=== PATIENT | male | born 1960 | race Two or more races ===

== ENCOUNTER → 2016-07-25 | Day surgery (SDC) | payer OTHER ==
[~2016-07-25] MED LIST: ACETAMINOPHEN 325 MG TAB PO PRN; CYMB60CA3 PO; D5W/0.2% SODIUM CHLORIDE 1,000 ML IV SCH; ERYTHROMYCIN OPHTH OINT As Ordered ONE; GABA-282 PO; LASI20TA PO; LIDOCAINE 2% W/EPIN INJ 20ML **PRES FREE As Ordered ONE; LIDOCAINE 4% INJ 5 ML AMP OU ONE; LIPI10TA PO; LISI40TAB PO; MIDAZOLAM INJ 2 MG/2 ML VIAL (J2250) As Ordered ONE; NABU750T PO; NORV2TAB PO; OFLOXACIN 0.3 % (OCUFLOX) OPTH SOL 5ML OS ONE; ONDANSETRON 4MG/2ML VIAL (J2405) IV PRN; POVIDONE-IODINE 5% OPHTH PREP SOL 30ML As Ordered ONE; RANI15TA PO; TIZA4CAP3 PO; TRIMETHOBENZAMIDE 300 MG CAP PO PRN; ULOR80TA PO; fentaNYL 100 MCG/2 ML INJECTION (J3010) As Ordered ONE
[2016-07-25 19:25] VITALS: BP 146/95
--- NOTE | 2016-07-26 18:50 | RO ---
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 The patient had exposure ulcers that were progressing. Multiple medical treatments were attempted with ointments and Prokera treatments. The patient was also instructed to wear a shield at night, but his ulcers continued to progress and a decision was made to tarsorrhaphy the eye temporarily shutting it to allow the corneal ulcers to heal. After this is accomplished then later a more definitively tightening procedure will be performed. PREPROCEDURE DIAGNOSIS: As above. Corneal ulcers secondary to floppy eyelid syndrome left upper lid and ectropion left lower lid. POSTPROCEDURE DIAGNOSIS: As above. Corneal ulcers secondary to floppy eyelid syndrome left upper lid and ectropion left lower lid. Status post temporary tarsorrhaphy, total. OPERATIVE PROCEDURE: Total temporary tarsorrhaphy left eye. SURGEON: Bc Alan Jr., DO, FACS GAS PLANT SPECIALIST: ANESTHESIA: Local 2% lidocaine with epinephrine with sedation and monitoring by the anesthesiologist. SPECIMENS REMOVED: None. ESTIMATED BLOOD LOSS: Minimal. COMPLICATIONS: None. DESCRIPTION OF PROCEDURE: After taking informed consent the patient was taken to the operating room. The left eye was marked and a time out was performed. He was prepped and draped in a sterile fashion. 2% lidocaine with epinephrine was injected into the left upper lid and left lower lid and the conjunctiva was also injected with 2% lidocaine with epinephrine. A series of horizontal mattress sutures with #4-0 silk with butterfly IV tubing bolsters were performed, four bolsters. The eye was closed well. The lids were well approximated and the lashes were facing outward at the end of the procedure. Erythromycin ointment was placed in the conjunctival fornix and over the suture line. The eye was shielded at the end of the procedure. The patient returned to the recovery area in excellent condition. He will followup on postoperative day #1 in the office. CLAUDIO
== END ==
LOC: M SDC 15:36
PROVIDERS: ATTEND Ophthalmology
DX: H16.002 Unspecified corneal ulcer, left eye (principal); H21.81 Floppy iris syndrome; H02.105 Unspecified ectropion of left lower eyelid; I12.9 Hypertensive chronic kidney disease with stage 1 through stage 4 chronic kidney disease, or unspecified chronic kidney disease; N18.9 Chronic kidney disease, unspecified; K21.9 Gastro-esophageal reflux disease without esophagitis; M19.90 Unspecified osteoarthritis, unspecified site; G62.9 Polyneuropathy, unspecified; E66.9 Obesity, unspecified; M54.9 Dorsalgia, unspecified; M10.9 Gout, unspecified; Z79.899 Other long term (current) drug therapy; Z87.891 Personal history of nicotine dependence
CPT/HCPCS: 67875; J2250; J3010

== ENCOUNTER → 2016-09-12 | Day surgery (SDC) | payer OTHER ==
[~2016-09-12] VITALS: Ht 190.5 cm; Wt 181.4 kg
[~2016-09-12] MED LIST changes: -ACETAMINOPHEN 325 MG TAB PO PRN; +ALEV220T26 PO; -D5W/0.2% SODIUM CHLORIDE 1,000 ML IV SCH; +EPINEPHrine 1MG/ML INJ 30ML MD-VIAL As Ordered ONE; +ERYTHROMYCIN OPHTH OINT OS SCH; +LABETALOL HCL 100 MG/20 ML VIAL As Ordered ONE; +LIDOCAINE 2% INJ 100 MG/5 ML SDV (FOR ANES.) As Ordered ONE; +LIDOCAINE 4% INJ 5 ML AMP As Ordered ONE; -ONDANSETRON 4MG/2ML VIAL (J2405) IV PRN; +PROPOFOL 200 MG/20 ML VIAL As Ordered ONE; +SODIUM BICARBONATE 8.4% INJ 50MEQ 50 ML VIAL As Ordered ONE; +TETRACAINE 0.5% OPHTH SOLN 4ML As Ordered ONE; -TRIMETHOBENZAMIDE 300 MG CAP PO PRN
[2016-09-12 10:15] VITALS: BP 133/77
--- NOTE | 2016-09-15 10:28 | RO ---
DATE OF PROCEDURE: 09/12/2016 PREPROCEDURE DIAGNOSIS: Recurrent left floppy eyelid syndrome left upper lid and ectropion left lower lid. POSTPROCEDURE DIAGNOSIS: Recurrent left floppy eyelid syndrome left upper lid and ectropion left lower lid. OPERATIVE PROCEDURES: 1. Superior tarsal lateral wedge resection left upper lid 8 mm. 2. Ectropion repair left lower lid, bilateral tarsal strip, 5 mm. INDICATION: This gentleman had floppy eyelid syndrome secondary to morbid obesity with sleep apnea. He had bilateral superior tarsal wedge resection about one or two years ago, however, he does sleep more on his left side and the condition has recurred on the left with an ectropion of the lower lid. SURGEON: Bc Alan Jr., DO, FACS CONTROLLER [employer] ORE: ANESTHESIA: Local, 2% lidocaine with epinephrine, and sedation monitoring by anesthesia. SPECIMENS: Sent to pathology. ESTIMATED BLOOD LOSS: Minimal. COMPLICATIONS: None. DESCRIPTION OF PROCEDURE: After obtaining informed consent, the patient was taken to the operating room, and the left eye lids were prepped and draped in a sterile fashion. Some sedation was given by the pleating supervisor and subcutaneous and subconjunctival 2% lidocaine with epinephrine was infused in the surgical areas in the lateral aspect of the upper and lower lids. First, a superior tarsal wedge of 8 mm was created. The lid margin was reapproximated with #6-0 nylon cardinal suture. Next, the tarsal plate was reapproximated with #5-0 Vicryl interrupted sutures and then the skin was closed with #6-0 nylon interrupted sutures and taken care to tie the cardinal suture to the superior aspect of the wound so it would not go in the eye. Next, an ectropion repair bilateral tarsal strip was performed on the lower lid. A wedge of 5 mm was excised and a tarsal strip was created. Sharp dissection was performed into the lateral aspect of the orbit and the tarsal strip was approximated to the periosteum of the lateral orbital rim by Whitnall's tubercle with #6-0 Prolene suture. When the tarsal strip was approximated well, several #5-0 Vicryl sutures were used to reinforce this in the periorbital tissues. The skin was closed with #6-0 nylon and the lateral canthus was well formed at the end of the procedure. Lid position was excellent and the eye was administered erythromycin ointment and the patient returned to the recovery room in excellent condition.
== END ==
LOC: M SDC 06:36
PROVIDERS: ATTEND Ophthalmology
DX: H02.89 Other specified disorders of eyelid (principal); H02.105 Unspecified ectropion of left lower eyelid; I12.9 Hypertensive chronic kidney disease with stage 1 through stage 4 chronic kidney disease, or unspecified chronic kidney disease; E78.00 Pure hypercholesterolemia, unspecified; R60.0 Localized edema; M10.9 Gout, unspecified; M17.0 Bilateral primary osteoarthritis of knee; M51.26 Other intervertebral disc displacement, lumbar region; F32.9 Major depressive disorder, single episode, unspecified; L97.509 Non-pressure chronic ulcer of other part of unspecified foot with unspecified severity; G57.93 Unspecified mononeuropathy of bilateral lower limbs; N18.3 Chronic kidney disease, stage 3 (moderate); Z87.891 Personal history of nicotine dependence; Z79.899 Other long term (current) drug therapy

== ENCOUNTER → 2016-10-10 | Day surgery (SDC) | payer OTHER ==
[~2016-10-10] VITALS: Ht 190.5 cm; Wt 181.4 kg
[~2016-10-10] MED LIST changes: -EPINEPHrine 1MG/ML INJ 30ML MD-VIAL As Ordered ONE; -ERYTHROMYCIN OPHTH OINT OS SCH; -LABETALOL HCL 100 MG/20 ML VIAL As Ordered ONE; -LIDOCAINE 4% INJ 5 ML AMP As Ordered ONE; -OFLOXACIN 0.3 % (OCUFLOX) OPTH SOL 5ML OS ONE; -SODIUM BICARBONATE 8.4% INJ 50MEQ 50 ML VIAL As Ordered ONE
[2016-10-10 10:45] VITALS: BP 123/79
--- NOTE | 2016-10-10 21:43 | RO ---
DATE OF PROCEDURE: 10/10/2016 PREPROCEDURE DIAGNOSIS: Floppy eyelid syndrome left upper lid with consecutive wound dehiscence. POSTPROCEDURE DIAGNOSIS: Floppy eyelid syndrome left upper lid with consecutive wound dehiscence. PROCEDURE: Revision of tarsal wedge wound dehiscence left upper lid. SURGEON: Bc Alan Jr., , BHANU MACHINE COREMAKER: ANESTHESIA: Local 2% Lidocain with epinephrine INDICATION: Floppy eyelid syndrome left upper lid, status post repair two times. The patient's upper lid wound on the most revision has dehisced and we are returning to the operating room to repair this. SPECIMENS: None. ESTIMATED BLOOD LOSS: Minimal. COMPLICATIONS: None. DESCRIPTION OF PROCEDURE: After obtaining informed consent, the patient was taken to the operating room and prepped and draped in a sterile fashion. The upper lid was inspected, and there was an approximately 5 mm wound dehiscence on the left upper lid. The operative site was marked and the lid was injected with a mixture of 50-50 2% lidocaine with epinephrine and 0.75% Marcaine. When adequate anesthesia was obtained, the lid was incised. The edges of the wound were debrided, and the lid was reapproximated using a #4-0 silk suture through the silveira line of the lid margin as a cardinal suture. The suture was left long. Next, the tarsal plates were approximated with interrupted #5-0 Vicryl sutures, a total of three. The lid position was very satisfactory. The skin was closed, again, with #4-0 silk sutures, several interrupted, bringing the cardinal suture ends, tail ends up into their knots and the sutures were all tied together. The lid position was very satisfactory at the end of the case. Erythromycin ointment was applied to the eye, and the patient returned to the recovery room in excellent condition. CLAUDIO
== END | disposition home or self-care (01) ==
LOC: M SDC 07:11
PROVIDERS: ATTEND Ophthalmology
DX: T81.31XA Disruption of external operation (surgical) wound, not elsewhere classified, initial encounter (principal); H02.89 Other specified disorders of eyelid; I12.9 Hypertensive chronic kidney disease with stage 1 through stage 4 chronic kidney disease, or unspecified chronic kidney disease; E78.00 Pure hypercholesterolemia, unspecified; R60.0 Localized edema; M10.9 Gout, unspecified; K21.9 Gastro-esophageal reflux disease without esophagitis; R29.898 Other symptoms and signs involving the musculoskeletal system; M17.0 Bilateral primary osteoarthritis of knee; M51.26 Other intervertebral disc displacement, lumbar region; L97.519 Non-pressure chronic ulcer of other part of right foot with unspecified severity; F32.9 Major depressive disorder, single episode, unspecified; R51 Headache; G62.9 Polyneuropathy, unspecified; H16.009 Unspecified corneal ulcer, unspecified eye; R06.09 Other forms of dyspnea; F17.210 Nicotine dependence, cigarettes, uncomplicated; N18.3 Chronic kidney disease, stage 3 (moderate); Z79.899 Other long term (current) drug therapy; Z87.81 Personal history of (healed) traumatic fracture

== ENCOUNTER → 2017-12-04 | Outpatient (REF) | payer OTHER ==
[2017-12-04 10:04] LABS: BASO % 0.3 % (0.0-1.0); EOS # 0.2 10^3/uL (0.0-0.50); EOS % 3.2 % (0.0-3.0); HEMATOCRIT 40.7 % (42.0-52.0); HEMOGLOBIN 13.3 g/dl (13.5-17.5); IMMATURE GRANULOCYTE % 0.3 % (0-3.0); LYMPH # 2.2 10^3/uL (1.5-4.5); LYMPH % 33.3 % (24.0-44.0); MEAN CORPUSCULAR HGB CONC 32.7 g/dl (32.0-36.5); MEAN CORPUSCULAR VOLUME 91.7 fl (80.0-96.0); MONO # 0.6 10^3/uL (0.0-0.8); MONO % 8.9 % (0.0-5.0); NEUTROPHILS # 3.5 10^3/uL (1.8-7.7); PLATELET COUNT, AUTOMATED 185 10^3/uL (150-450); RED BLOOD COUNT 4.44 10^6/uL (4.30-6.10); RED CELL DISTRIBUTION WIDTH 15.3 % (11.5-14.5); WHITE BLOOD COUNT 6.5 10^3/uL (4.0-10.0)
[2017-12-04 10:22] LABS: ANION GAP 6 MEQ/L (8-16); BLOOD UREA NITROGEN 19 MG/DL (7-18); C REACTIVE PROTEIN QUANTITATIV 0.64 MG/DL (0.00-0.30); CALCIUM LEVEL 8.9 MG/DL (8.5-10.1); CARBON DIOXIDE LEVEL 30 MEQ/L (21-32); CHLORIDE LEVEL 104 MEQ/L (98-107); CREATININE FOR GFR 1.32 MG/DL (0.70-1.30); GLOMERULAR FILTRATION RATE > 60.0 (>56); GLUCOSE, FASTING 120 MG/DL (70-100); POTASSIUM SERUM 3.9 MEQ/L (3.5-5.1); SODIUM LEVEL 140 MEQ/L (136-145)
[2017-12-04 10:28] LABS: ERYTHROCYTE SEDIMENTATION RATE 43 mm/hr (0-20)
== END ==
LOC: M SFHCPLAZ 08:24
DX: A49.9 Bacterial infection, unspecified (principal)
CPT/HCPCS: 80048

== ENCOUNTER → 2017-12-04 | Outpatient (CLI) | payer OTHER | LOC: M RADPRO 12:06 | DX: A49.9 Bacterial infection, unspecified (principal); Z79.899 Other long term (current) drug therapy | CPT/HCPCS: 36569 ==

== ENCOUNTER → 2017-12-13 | Outpatient (REF) | payer OTHER ==
[2017-12-13 17:53] LABS: BASO % 0.5 % (0.0-1.0); EOS # 0.2 10^3/uL (0.0-0.50); EOS % 2.7 % (0.0-3.0); HEMATOCRIT 42.5 % (42.0-52.0); HEMOGLOBIN 13.6 g/dl (13.5-17.5); IMMATURE GRANULOCYTE % 0.5 % (0-3.0); LYMPH # 2.6 10^3/uL (1.5-4.5); LYMPH % 34.4 % (24.0-44.0); MEAN CORPUSCULAR HEMOGLOBIN 29.7 pg (27.0-33.0); MEAN CORPUSCULAR VOLUME 92.8 fl (80.0-96.0); MONO # 0.6 10^3/uL (0.0-0.8); MONO % 7.6 % (0.0-5.0); NEUTROPHILS # 4.2 10^3/uL (1.8-7.7); NEUTROPHILS % 54.3 % (36.0-66.0); PLATELET COUNT, AUTOMATED 219 10^3/uL (150-450); RED BLOOD COUNT 4.58 10^6/uL (4.30-6.10); RED CELL DISTRIBUTION WIDTH 15.4 % (11.5-14.5); WHITE BLOOD COUNT 7.7 10^3/uL (4.0-10.0)
[2017-12-13 18:01] LABS: C REACTIVE PROTEIN QUANTITATIV 0.91 MG/DL (0.00-0.30)
[2017-12-13 18:48] LABS: ERYTHROCYTE SEDIMENTATION RATE 44 mm/hr (0-20)
== END ==
LOC: M SHH 16:28
DX: A49.9 Bacterial infection, unspecified (principal)

== ENCOUNTER 2018-02-21 12:32 | Emergency (ER) | payer OTHER ==
[2018-02-21] MEDS: dexameTHASONE 4 MG/ML 1ML VIAL (J1100) IM (14:54)
== END 2018-02-21 15:16 | disposition home or self-care (01) ==
LOC: M ED 12:32
DX: M17.11 Unilateral primary osteoarthritis, right knee (principal)
CPT/HCPCS: J1100

== ENCOUNTER → 2018-07-22 | Outpatient (REF) | payer OTHER ==
[~2018-07-22] MED LIST changes: +ALLO100T PO; -ERYTHROMYCIN OPHTH OINT As Ordered ONE; -GABA-282 PO; +GABA-843 PO; -LASI20TA PO; +LASI20TA3 PO; -LIDOCAINE 2% INJ 100 MG/5 ML SDV (FOR ANES.) As Ordered ONE; -LIDOCAINE 2% W/EPIN INJ 20ML **PRES FREE As Ordered ONE; -LIDOCAINE 4% INJ 5 ML AMP OU ONE; +LISI40TA PO; -LISI40TAB PO; -MIDAZOLAM INJ 2 MG/2 ML VIAL (J2250) As Ordered ONE; +NABU-119 PO; -NABU750T PO; -POVIDONE-IODINE 5% OPHTH PREP SOL 30ML As Ordered ONE; +PRED5PAK2 PO; -PROPOFOL 200 MG/20 ML VIAL As Ordered ONE; -TETRACAINE 0.5% OPHTH SOLN 4ML As Ordered ONE; +TIZA4CAP PO; -TIZA4CAP3 PO; +TRAM50TA2 PO; -fentaNYL 100 MCG/2 ML INJECTION (J3010) As Ordered ONE
== END ==
LOC: M LAB REF 17:08
PROVIDERS: ATTEND Surgery
DX: L97.412 Non-pressure chronic ulcer of right heel and midfoot with fat layer exposed (principal)

== ENCOUNTER → 2018-08-16 | Outpatient (CLI) | payer OTHER ==
[~2018-08-16] MED LIST changes: +ASPI81CH33 PO
[2018-08-16 13:03] LABS: HEMATOCRIT 42.1 % (42.0-52.0); HEMOGLOBIN 13.1 g/dl (13.5-17.5); MEAN CORPUSCULAR HEMOGLOBIN 27.5 pg (27.0-33.0); MEAN CORPUSCULAR HGB CONC 31.1 g/dl (32.0-36.5); MEAN CORPUSCULAR VOLUME 88.4 fl (80.0-96.0); PLATELET COUNT, AUTOMATED 397 10^3/uL (150-450); RED BLOOD COUNT 4.76 10^6/uL (4.30-6.10); WHITE BLOOD COUNT 9.4 10^3/uL (4.0-10.0)
[2018-08-16 13:31] LABS: CALCIUM LEVEL 8.9 MG/DL (8.5-10.1); CREATININE FOR GFR 1.54 MG/DL (0.70-1.30); GLOMERULAR FILTRATION RATE 50.2 (>56); POTASSIUM SERUM 4.3 MEQ/L (3.5-5.1)
== END ==
LOC: M LAB 12:22
PROVIDERS: ATTEND Podiatrist Foot & Ankle Surgery
DX: M86.171 Other acute osteomyelitis, right ankle and foot (principal)

== ENCOUNTER 2018-08-21 11:24 | Day surgery (SDC) | payer OTHER ==
[~2018-08-21] VITALS: Ht 190.5 cm; Wt 176.0 kg
[~2018-08-21 11:24] MED LIST changes: -ASPI81CH33 PO; +BUPIVACAINE HCL 0.5% 10 ML VIAL As Ordered ONE; +LIDOCAINE 1% MDV 20ML VIAL As Ordered ONE; +LR 1,000 ML IV ONE; +VANCOMYCIN HCL 1,000 MG, VIAL MATE ADAPTER 1 EACH in D5W 250 ML IV ONE; +dexameTHASONE 4 MG/ML 1ML VIAL (J1100) As Ordered ONE
[2018-08-21] MEDS ORDERED: ASPI81CH33 PO (13:36)
[2018-08-21] MEDS ORDERED: LIDOCAINE 2% INJ 100 MG/5 ML SDV (FOR ANES.) As Ordered ONE (14:06)
[2018-08-21] MEDS ORDERED: MIDAZOLAM INJ 2 MG/2 ML VIAL (J2250) As Ordered ONE (14:06)
[2018-08-21] MEDS ORDERED: PROPOFOL 200 MG/20 ML VIAL As Ordered ONE (14:06)
[2018-08-21] MEDS ORDERED: fentaNYL 100 MCG/2 ML INJECTION (J3010) As Ordered ONE (14:06)
[2018-08-21] MEDS ORDERED: KETAMINE HCL 200 MG/20 ML VIAL As Ordered ONE (15:48)
[2018-08-21 17:05] VITALS: BP 115/62
[2018-08-21] MEDS ORDERED: METOCLOPRAMIDE INJ 10MG/2ML VIAL (J2765) IV PRN (17:15)
[2018-08-21] MEDS ORDERED: LR 1,000 ML IV SCH (17:15)
[2018-08-21] MEDS ORDERED: fentaNYL 100 MCG/2 ML INJECTION (J3010) IV PRN (17:15)
[2018-08-21] MEDS ORDERED: ONDANSETRON 4MG/2ML VIAL (J2405) IV PRN (17:15)
--- NOTE | 2018-08-22 06:52 | ECGEPIP ---
Stationary ECG Study [facility] Test Date: 2018-08-21 Pat Name: ZAKI ROACH Department: Room: - Gender: M Application Architect Manager: : [id number] Requested By: Steve Costello Order Number: [id number] Reading MD: Cassius Self Measurements Intervals [place] Rate: 83 P: 54 TX: 170 QRS: 78 QRSD: 99 T: 50 QT: 377 QTc: 444 Interpretive Statements Normal sinus rhythm Incomplete right bundle branch block Nonspecific ST-T wave abnormalities Comparison tracing not on file Electronically Signed On 08-22-2018 6:52:24 EDT by Cassius Self
--- NOTE | 2018-08-22 09:01 | RO ---
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 PROCEDURE: Right 5th metatarsal head excision with amputation of 5th toe. SURGEON: Orlando Mckinney DPM PHOTO OPTICS TECHNICIAN: None ANESTHESIA: Monitored anesthesia care with preoperative injection of 20 mL of 1:1 mixture of 1% lidocaine plain and 0.5% Marcaine plain. ESTIMATED BLOOD LOSS: Minimal. MATERIALS: 3-0 nylon. SPECIMENS: Right 5th toe and metatarsal head and clean margin 5th metatarsal bone, as well as culture of the bone. COMPLICATIONS: None. CONDITION: Stable. Kev Jackman is a 57-year-old male who has chronic ulceration of his right foot. He states it has been present approximately 1 year. Has recently become worse in nature and more infected. He is being currently treated with antibiotics by Dr. Garza and has been seeing Dr. Jackson for wound care. Due to chronic nature of wound that has not been improving, the patient elected to proceed with toe and metatarsal head excision/amputation. The patient's side and site were identified and marked in the preoperative holding area. Consent was reviewed and obtained. All risks, complications, and alternatives to the procedure were explained to the patient in detail. All questions were answered. DESCRIPTION OF PROCEDURE: The patient was brought to the operating room and placed on the operating table in supine position. Monitored anesthesia care was delivered by the anesthesia team. A preoperative injection of 20 mL of 1:1 mixture of 1% lidocaine plain and 0.5% Marcaine plain were injected to the right foot. The right foot was prepped and draped in normal sterile fashion. A tourniquet was applied to the ankle, inflated at 250 mmHg. The patient received vancomycin preoperatively. An incision was made around the 5th toe and over the 5th metatarsal and carried full thickness using a #15 blade. The toe was disarticulated at the metatarsophalangeal joint. The metatarsal head was identified, and an osteotomy was performed at the metatarsal shaft, excising the distal portion of the metatarsal head. This was sent for pathology. It was noted to be eroded at the distal portion, which was adjacent to the plantar wound. The more proximal portion appeared in good condition. A section of this bone was resected with sagittal saw and sent as clean margin. Following this, any further tendon or necrotic tissue was debrided in the site. The site was irrigated with normal saline. The incision was closed with 3-0 nylon. Sterile dressings were applied. The tourniquet was deflated. The patient was brought to postanesthesia care unit (PACU) with vital signs stable and neurovascular status intact. He will be partial weightbearing with a walker. He will followup in office in 2 days.
== END 2018-08-21 17:20 | disposition home or self-care (01) ==
LOC: M SDC 11:24
PROVIDERS: ATTEND Podiatrist Foot & Ankle Surgery
DX: M86.171 Other acute osteomyelitis, right ankle and foot (principal); L89.894 Pressure ulcer of other site, stage 4; I11.9 Hypertensive heart disease without heart failure; E78.00 Pure hypercholesterolemia, unspecified; N18.9 Chronic kidney disease, unspecified; M10.9 Gout, unspecified; M54.5 Low back pain; K21.9 Gastro-esophageal reflux disease without esophagitis; G62.9 Polyneuropathy, unspecified; R60.0 Localized edema; R29.898 Other symptoms and signs involving the musculoskeletal system; F12.90 Cannabis use, unspecified, uncomplicated; E66.9 Obesity, unspecified; Z68.42 Body mass index [BMI] 45.0-49.9, adult; Z79.899 Other long term (current) drug therapy; Z79.82 Long term (current) use of aspirin; Z72.0 Tobacco use; Z87.81 Personal history of (healed) traumatic fracture; Z86.73 Personal history of transient ischemic attack (TIA), and cerebral infarction without residual deficits
CPT/HCPCS: 28810; 87070; 87075; 87077; 87186; 87205; 88304; 88311; 93005; 97116; J1100; J2250; J3010; J3370

== ENCOUNTER → 2018-09-03 | Outpatient (REF) | payer OTHER ==
[~2018-09-03] MED LIST changes: +ASPI81CH33 PO; -BUPIVACAINE HCL 0.5% 10 ML VIAL As Ordered ONE; -LIDOCAINE 1% MDV 20ML VIAL As Ordered ONE; -LR 1,000 ML IV ONE; -VANCOMYCIN HCL 1,000 MG, VIAL MATE ADAPTER 1 EACH in D5W 250 ML IV ONE; -dexameTHASONE 4 MG/ML 1ML VIAL (J1100) As Ordered ONE
[2018-09-03 16:16] LABS: HEMATOCRIT 42.3 % (42.0-52.0); HEMOGLOBIN 13.3 g/dl (13.5-17.5); MEAN CORPUSCULAR HEMOGLOBIN 28.4 pg (27.0-33.0); MEAN CORPUSCULAR HGB CONC 31.4 g/dl (32.0-36.5); MEAN CORPUSCULAR VOLUME 90.4 fl (80.0-96.0); NEUTROPHILS % 50.1 % (36.0-66.0); PLATELET COUNT, AUTOMATED 219 10^3/uL (150-450); RED BLOOD COUNT 4.68 10^6/uL (4.30-6.10); WHITE BLOOD COUNT 7.5 10^3/uL (4.0-10.0)
[2018-09-03 16:17] LABS: BASO % 0.5 % (0.0-1.0); EOS # 0.2 10^3/uL (0.0-0.50); EOS % 2.7 % (0.0-3.0); LYMPH % 39.5 % (24.0-44.0); MONO # 0.5 10^3/uL (0.0-0.8); MONO % 6.8 % (0.0-5.0); NEUTROPHILS # 3.7 10^3/uL (1.8-7.7)
[2018-09-03 17:03] LABS: ERYTHROCYTE SEDIMENTATION RATE 52 mm/hr (0-20)
== END ==
LOC: M SFHCPLAZ 12:32
PROVIDERS: ATTEND Internal Medicine Infectious Disease
DX: M86.179 Other acute osteomyelitis, unspecified ankle and foot (principal)

== ENCOUNTER → 2018-09-05 | Outpatient (REF) | payer OTHER ==
[2018-09-05 16:39] LABS: BASO % 0.3 % (0.0-1.0); EOS # 0.2 10^3/uL (0.0-0.50); EOS % 1.4 % (0.0-3.0); HEMOGLOBIN 12.2 g/dl (13.5-17.5); LYMPH # 2.1 10^3/uL (1.5-4.5); LYMPH % 17.2 % (24.0-44.0); MEAN CORPUSCULAR HEMOGLOBIN 28.4 pg (27.0-33.0); MEAN CORPUSCULAR HGB CONC 32.1 g/dl (32.0-36.5); MEAN CORPUSCULAR VOLUME 88.4 fl (80.0-96.0); MONO # 0.7 10^3/uL (0.0-0.8); MONO % 5.8 % (0.0-5.0); NEUTROPHILS % 74.8 % (36.0-66.0); PLATELET COUNT, AUTOMATED 191 10^3/uL (150-450)
[2018-09-05 17:19] LABS: ERYTHROCYTE SEDIMENTATION RATE 60 mm/hr (0-20)
== END ==
LOC: M SFHCPLAZ 13:49
PROVIDERS: ATTEND Internal Medicine Infectious Disease
DX: M86.179 Other acute osteomyelitis, unspecified ankle and foot (principal)

== ENCOUNTER → 2018-09-19 | Outpatient (REF) | payer OTHER ==
[2018-09-19 16:04] LABS: BASO % 0.2 % (0.0-1.0); EOS # 0.2 10^3/uL (0.0-0.50); EOS % 2.1 % (0.0-3.0); HEMATOCRIT 39.7 % (42.0-52.0); HEMOGLOBIN 12.6 g/dl (13.5-17.5); LYMPH # 2.5 10^3/uL (1.5-4.5); MEAN CORPUSCULAR HEMOGLOBIN 29.4 pg (27.0-33.0); MEAN CORPUSCULAR HGB CONC 31.7 g/dl (32.0-36.5); MEAN CORPUSCULAR VOLUME 92.5 fl (80.0-96.0); MONO % 10.2 % (0.0-5.0); NEUTROPHILS # 5.9 10^3/uL (1.8-7.7); NEUTROPHILS % 61.2 % (36.0-66.0); PLATELET COUNT, AUTOMATED 218 10^3/uL (150-450); RED BLOOD COUNT 4.29 10^6/uL (4.30-6.10); WHITE BLOOD COUNT 9.6 10^3/uL (4.0-10.0)
[2018-09-19 16:07] LABS: C REACTIVE PROTEIN QUANTITATIV 3.73 MG/DL (0.00-0.30); CALCIUM LEVEL 8.6 MG/DL (8.5-10.1); CREATININE FOR GFR 1.46 MG/DL (0.70-1.30); GLOMERULAR FILTRATION RATE 53.4 (>56); POTASSIUM SERUM 4.5 MEQ/L (3.5-5.1)
[2018-09-19 18:14] LABS: ERYTHROCYTE SEDIMENTATION RATE 73 mm/hr (0-20)
== END ==
LOC: M SFHCPLAZ 13:25
PROVIDERS: ATTEND Internal Medicine Infectious Disease
DX: A49.02 Methicillin resistant Staphylococcus aureus infection, unspecified site (principal)

== ENCOUNTER → 2018-11-05 | Outpatient (CLI) | payer OTHER ==
--- NOTE | 2018-11-06 07:13 | REP ---
RIGHT KNEE SERIES: Five views of the right knee are performed. There is no acute fracture or dislocation. There is mild diffuse joint space narrowing. There is chondrocalcinosis predominately in the lateral joint. There is mild spurring of the tibial plateau. Oval calcification id seen in the inferior patellar tendon. There is a larger joint effusion. IMPRESSION: No acute fracture or dislocation. Degenerative changes as above. Large joint effusion. Electronically Signed by Jean Uribe MD 11/07/2018 11:40 A
== END ==
LOC: M WUC 17:44
PROVIDERS: ATTEND Physician Assistant
DX: M17.11 Unilateral primary osteoarthritis, right knee (principal); M25.761 Osteophyte, right knee; M25.461 Effusion, right knee; S83.421A Sprain of lateral collateral ligament of right knee, initial encounter; X58.XXXA Exposure to other specified factors, initial encounter; Y92.9 Unspecified place or not applicable

== ENCOUNTER → 2018-11-21 | Outpatient (CLI) | payer OTHER ==
--- NOTE | 2018-11-21 11:44 | REP ---
Clinical: Arthritic pain. Technique: AP, lateral, bilateral oblique views right wrist. Findings: The carpal bones and joint spaces are relatively normal for age. Very subtle chondrocalcinosis at the ulnocarpal joint space noted. Impression: Mild degenerative change. Electronically Signed by Gerhard Keenan MD 11/21/2018 11:36 A
== END ==
LOC: M WUC 11:24
PROVIDERS: ATTEND Internal Medicine Rheumatology
DX: M19.90 Unspecified osteoarthritis, unspecified site (principal)

== ENCOUNTER → 2018-12-13 | Outpatient (CLI) | payer OTHER ==
[2018-12-13 17:04] LABS: ALBUMIN 3.7 GM/DL (3.2-5.2); ALT/SGPT 24 U/L (12-78); BILIRUBIN,TOTAL 0.5 MG/DL (0.2-1.0); BLOOD UREA NITROGEN 17 MG/DL (7-18); CALCIUM LEVEL 9.2 MG/DL (8.5-10.1); CARBON DIOXIDE LEVEL 27 MEQ/L (21-32); CHLORIDE LEVEL 109 MEQ/L (98-107); CHOLESTEROL LEVEL 171 MG/DL (<200); CHOLESTEROL RISK RATIO 4.885 (<5); CREATININE FOR GFR 1.28 MG/DL (0.70-1.30); FREE T4 1.15 NG/DL (0.76-1.46); GLOMERULAR FILTRATION RATE > 60.0 (>56); GLUCOSE, FASTING 95 MG/DL (70-100); HDL CHOLESTEROL 35 MG/DL (>40); LDL CHOLESTEROL 89 MG/DL (<100); NON-HDL-C 136 MG/DL; POTASSIUM SERUM 4.3 MEQ/L (3.5-5.1); SODIUM LEVEL 141 MEQ/L (136-145); TOTAL 25(OH) VITAMIN D 21.6 NG/ML (30.0-100.0); TOTAL PROTEIN 7.1 GM/DL (6.4-8.2); TRIGLYCERIDES LEVEL 233 MG/DL (<150); URIC ACID 7.4 MG/DL (3.5-7.2)
== END ==
LOC: M WUC 11:51
PROVIDERS: ATTEND Nurse Practitioner Family
DX: F32.89 Other specified depressive episodes (principal); E78.2 Mixed hyperlipidemia; I10 Essential (primary) hypertension; E66.01 Morbid (severe) obesity due to excess calories; Z83.3 Family history of diabetes mellitus

== ENCOUNTER → 2018-12-19 | Outpatient (CLI) | payer OTHER ==
[2018-12-19 17:08] LABS: ALBUMIN 3.9 GM/DL (3.2-5.2); ALT/SGPT 25 U/L (12-78); BILIRUBIN,TOTAL 0.5 MG/DL (0.2-1.0); BLOOD UREA NITROGEN 16 MG/DL (7-18); CALCIUM LEVEL 9.4 MG/DL (8.5-10.1); CARBON DIOXIDE LEVEL 29 MEQ/L (21-32); CHLORIDE LEVEL 107 MEQ/L (98-107); CREATININE FOR GFR 1.29 MG/DL (0.70-1.30); GLOMERULAR FILTRATION RATE > 60.0 (>56); GLUCOSE, FASTING 92 MG/DL (70-100); POTASSIUM SERUM 4.4 MEQ/L (3.5-5.1); SODIUM LEVEL 140 MEQ/L (136-145); TOTAL PROTEIN 6.9 GM/DL (6.4-8.2); URIC ACID 8.1 MG/DL (3.5-7.2)
== END ==
LOC: M WUC 13:39
PROVIDERS: ATTEND Internal Medicine Rheumatology
DX: Z87.39 Personal history of other diseases of the musculoskeletal system and connective tissue (principal); M19.90 Unspecified osteoarthritis, unspecified site

== ENCOUNTER → 2019-01-18 | Outpatient (CLI) | payer OTHER ==
[2019-01-18 18:38] LABS: BASO % 0.7 % (0.0-1.0); EOS # 0.2 10^3/uL (0.0-0.5); EOS % 4.1 % (0.0-3.0); HEMATOCRIT 43.3 % (42.0-52.0); HEMOGLOBIN 13.7 g/dl (13.5-17.5); LYMPH # 2.1 10^3/uL (1.5-5.0); MEAN CORPUSCULAR HEMOGLOBIN 29.8 pg (27.0-33.0); MEAN CORPUSCULAR HGB CONC 31.6 g/dl (32.0-36.5); MEAN CORPUSCULAR VOLUME 94.3 fl (80.0-96.0); MONO # 0.5 10^3/uL (0.0-0.8); MONO % 9.1 % (0.0-5.0); NEUTROPHILS # 2.7 10^3/uL (1.5-8.5); NEUTROPHILS % 47.9 % (36.0-66.0); PLATELET COUNT, AUTOMATED 181 10^3/uL (150-450); RED BLOOD COUNT 4.59 10^6/uL (4.30-6.10); WHITE BLOOD COUNT 5.6 10^3/uL (4.0-10.0)
[2019-01-18 19:07] LABS: CALCIUM LEVEL 8.7 MG/DL (8.5-10.1); CREATININE FOR GFR 1.55 MG/DL (0.70-1.30); GLOMERULAR FILTRATION RATE 49.6 (>56); POTASSIUM SERUM 4.7 MEQ/L (3.5-5.1); URIC ACID 5.4 MG/DL (3.5-7.2)
== END ==
LOC: M WUC 11:03
PROVIDERS: ATTEND Internal Medicine Rheumatology
DX: M19.90 Unspecified osteoarthritis, unspecified site (principal)

== ENCOUNTER → 2019-02-05 | Outpatient (CLI) | payer MEDICARE, OTHER ==
--- NOTE | 2019-02-05 14:07 | REP ---
REASON FOR EXAM: Tobacco abuse. COMPARISON: As per the protocol only lung window images were sent to the read station for interpretation. There is a 4 mm sized noncalcified nodule in the left upper lobe. There is an incidental millimeter sized calcified granuloma in the right lower lobe pleural based. Grossly the mediastinum and pulmonary elizabeth are within normal limits. Grossly the imaged upper abdomen and imaged osseous structures are within normal limits. IMPRESSION: Lung-RADS category 3 exam according to the revised Fleischner's Society criteria 6 month followup examination is recommended for the 4 mm sized nodule in the left upper lobe. Incidentally, there is a calcified granuloma in the right lung and there is a parenchymal bulla in the left lower lobe. These areas can also be followed in the recommended 6 month followup. Electronically Signed by Sagar Orozco DO 02/05/2019 02:35 P
== END ==
LOC: M RAD 10:41
PROVIDERS: ATTEND Nurse Practitioner Family
DX: R91.1 Solitary pulmonary nodule (principal); R91.8 Other nonspecific abnormal finding of lung field; F17.210 Nicotine dependence, cigarettes, uncomplicated

== ENCOUNTER → 2019-03-19 | Outpatient (REF) | payer MEDICARE, OTHER ==
[2019-03-19 17:47] LABS: ALBUMIN 3.7 GM/DL (3.2-5.2); ALT/SGPT 43 U/L (12-78); BILIRUBIN,TOTAL 0.7 MG/DL (0.2-1.0); BLOOD UREA NITROGEN 19 MG/DL (7-18); CALCIUM LEVEL 9.4 MG/DL (8.5-10.1); CARBON DIOXIDE LEVEL 28 MEQ/L (21-32); CHLORIDE LEVEL 106 MEQ/L (98-107); CREATININE FOR GFR 1.25 MG/DL (0.70-1.30); FREE T4 0.88 NG/DL (0.76-1.46); GLOMERULAR FILTRATION RATE > 60.0 (>56); GLUCOSE, FASTING 87 MG/DL (70-100); POTASSIUM SERUM 4.1 MEQ/L (3.5-5.1); SODIUM LEVEL 140 MEQ/L (136-145); TOTAL 25(OH) VITAMIN D 20.2 NG/ML (30.0-100.0); TOTAL PROTEIN 7.3 GM/DL (6.4-8.2)
[2019-03-19 17:49] LABS: HEMOGLOBIN A1c 5.7 %
[2019-03-19 18:07] LABS: CREATININE, URINE 38.1 MG/DL; MALB URINE SIEMENS 5.1 MG/L; MAU/CREAT RATIO 13.3 MCG/MG (0.0-30.0)
== END ==
LOC: M SFHCPLAZ 14:55
PROVIDERS: ATTEND Nurse Practitioner Family
DX: R73.03 Prediabetes (principal); E66.01 Morbid (severe) obesity due to excess calories; I10 Essential (primary) hypertension; E55.9 Vitamin D deficiency, unspecified

== ENCOUNTER → 2019-07-23 | Outpatient (REF) | payer MEDICARE, OTHER ==
[2019-07-23 14:48] LABS: CALCIUM LEVEL 10.9 MG/DL (8.5-10.1); CREATININE FOR GFR 1.48 MG/DL (0.70-1.30); GLOMERULAR FILTRATION RATE 52.3 (>56); POTASSIUM SERUM 4.4 MEQ/L (3.5-5.1)
[2019-07-23 14:59] LABS: HEMOGLOBIN A1c 5.8 %
== END ==
LOC: M SFHCPLAZ 12:14
PROVIDERS: ATTEND Nurse Practitioner Family
DX: I10 Essential (primary) hypertension (principal); R73.03 Prediabetes

== ENCOUNTER → 2020-01-22 | Outpatient (REF) | payer MEDICARE, OTHER ==
[~2020-01-22] MED LIST changes: -NABU-119 PO; +NABU-53 PO
[2020-01-22 11:56] LABS: BASO # 0.1 10^3/uL (0.0-0.2); BASO % 0.7 % (0.0-1.0); EOS # 0.3 10^3/uL (0.0-0.5); EOS % 3.7 % (0.0-3.0); HEMATOCRIT 39.7 % (42.0-52.0); HEMOGLOBIN 13.2 g/dl (13.5-17.5); LYMPH # 3.3 10^3/uL (1.5-5.0); LYMPH % 43.3 % (24.0-44.0); MEAN CORPUSCULAR HEMOGLOBIN 31.5 pg (27.0-33.0); MEAN CORPUSCULAR HGB CONC 33.2 g/dl (32.0-36.5); MEAN CORPUSCULAR VOLUME 94.7 fl (80.0-96.0); MONO # 0.7 10^3/uL (0.0-0.8); MONO % 8.7 % (0.0-5.0); NEUTROPHILS # 3.3 10^3/uL (1.5-8.5); NEUTROPHILS % 43.5 % (36.0-66.0); PLATELET COUNT, AUTOMATED 163 10^3/uL (150-450); RED BLOOD COUNT 4.19 10^6/uL (4.30-6.10); WHITE BLOOD COUNT 7.6 10^3/uL (4.0-10.0)
[2020-01-22 12:26] LABS: HEMOGLOBIN A1c 5.4 %
[2020-01-22 12:34] LABS: ALBUMIN 3.5 GM/DL (3.2-5.2); BILIRUBIN,TOTAL 0.5 MG/DL (0.2-1.0); CALCIUM LEVEL 8.7 MG/DL (8.5-10.1); CALCIUM LEVEL 8.8 MG/DL (8.5-10.1); CHOLESTEROL RISK RATIO 5.093 (<5); CREATININE FOR GFR 1.39 MG/DL (0.70-1.30); CREATININE FOR GFR 1.43 MG/DL (0.70-1.30); GLOMERULAR FILTRATION RATE 54.3 (>56); GLOMERULAR FILTRATION RATE 56.1 (>56); POTASSIUM SERUM 4.1 MEQ/L (3.5-5.1); TOTAL PROTEIN 6.8 GM/DL (6.4-8.2); URIC ACID 5.4 MG/DL (3.5-7.2)
== END ==
LOC: M PLALAB 08:06
PROVIDERS: ATTEND Internal Medicine
DX: M1A.09X0 Idiopathic chronic gout, multiple sites, without tophus (tophi) (principal); I10 Essential (primary) hypertension; R73.03 Prediabetes; E78.2 Mixed hyperlipidemia
CPT/HCPCS: 36415; 80053; 80061; 83036; 84550; 85025; 90682; G0008

== ENCOUNTER → 2020-06-23 | Outpatient (REF) | payer MEDICARE, OTHER ==
[~2020-06-23] MED LIST changes: +GABA-282 PO; -GABA-843 PO; -LISI40TA PO; +LISI40TA4 PO
[2020-06-23 17:05] LABS: C REACTIVE PROTEIN QUANTITATIV 0.86 MG/DL (0.00-0.30); RHEUMATOID FACTOR QUANT < 10.0 IU/ML (<15.0); URIC ACID 5.7 MG/DL (3.5-7.2)
== END ==
LOC: M SFHCRHEU 13:34
PROVIDERS: ATTEND Internal Medicine
DX: M25.50 Pain in unspecified joint (principal); M1A.09X0 Idiopathic chronic gout, multiple sites, without tophus (tophi)

== ENCOUNTER → 2020-07-29 | Outpatient (REF) | payer MEDICARE, OTHER ==
[~2020-07-29] MED LIST changes: -NABU-53 PO; +NABU-73 PO
[2020-07-29 17:56] LABS: ALBUMIN 3.8 GM/DL (3.2-5.2); BILIRUBIN,TOTAL 0.6 MG/DL (0.2-1.0); CALCIUM LEVEL 9.4 MG/DL (8.5-10.1); CHOLESTEROL RISK RATIO 4.842 (<5); CREATININE FOR GFR 1.53 MG/DL (0.70-1.30); FREE T4 1.08 NG/DL (0.76-1.46); GLOMERULAR FILTRATION RATE 50.2 (>56); POTASSIUM SERUM 3.8 MEQ/L (3.5-5.1); THYROID STIMULATING HORMONE 2.48 uIU/ML (0.358-3.740); TOTAL PROTEIN 7.6 GM/DL (6.4-8.2)
[2020-07-29 17:57] LABS: MAU/CREAT RATIO 106.8 MCG/MG (0.0-30.0)
[2020-07-29 18:06] LABS: HEMOGLOBIN A1c 5.3 %
== END ==
LOC: M SFHCPLAZ 14:54
PROVIDERS: ATTEND Nurse Practitioner Family
DX: R73.03 Prediabetes (principal); I10 Essential (primary) hypertension; E78.2 Mixed hyperlipidemia
CPT/HCPCS: 36415; 80053; 80061; 82043; 83036; 84439; 84443; G0463

== ENCOUNTER → 2020-09-21 | Outpatient (CLI) | payer MEDICARE, OTHER ==
--- NOTE | 2020-09-21 13:44 | REP ---
INDICATION: PRESSURE ULCER OF RIGHT HEAL AND MIDFOOT. COMPARISON: None TECHNIQUE: Real time silveira scale and color Doppler evaluation of the left lower extremity arterial vasculature using linear high frequency transducer. FINDINGS: The ankle to brachial index of the right lower extremity could not be obtained due to overlying wound dressing. Color Doppler interrogation demonstrates normal triphasic wave patterns and velocities from the common femoral artery through the ankle arterial vessels. No areas of occlusion or stenosis are appreciated.. PSV(cm/sec) Common femoral artery: 83.2 cm/s Profunda femoris artery: 48.2 cm/s Proximal superficial femoral artery: 79.3 cm/s Mid superficial femoral artery: 60.0 cm/s Distal superficial femoral artery: 96.1 cm/s Popliteal artery: 56.5 cm/s Proximal KUSH: 52.3 cm/s Tibioperoneal trunk: 58.4 cm/s Proximal PLATING STRIPPER: 65.8 cm/s Distal PLATING STRIPPER: 93.8 cm/s Distal KUSH: 41.1 cm/s IMPRESSION: Normal examination. No evidence for arterial stenosis or occlusion to the right lower extremity. <Electronically signed by Gerhard Keenan > 09/21/20 [id number]
== END ==
LOC: M RAD 12:06
PROVIDERS: ATTEND Surgery
DX: L97.412 Non-pressure chronic ulcer of right heel and midfoot with fat layer exposed (principal)

== ENCOUNTER → 2020-10-15 | Outpatient (CLI) | payer MEDICARE, OTHER ==
[2020-10-15 15:30] LABS: BASO % 0.5 % (0.0-1.0); EOS # 0.2 10^3/uL (0.0-0.5); EOS % 2.7 % (0.0-3.0); HEMATOCRIT 45.5 % (42.0-52.0); HEMOGLOBIN 15.2 g/dl (13.5-17.5); LYMPH # 2.8 10^3/uL (1.5-5.0); LYMPH % 38.2 % (24.0-44.0); MEAN CORPUSCULAR HEMOGLOBIN 32.2 pg (27.0-33.0); MEAN CORPUSCULAR HGB CONC 33.4 g/dl (32.0-36.5); MEAN CORPUSCULAR VOLUME 96.4 fl (80.0-96.0); MONO # 0.7 10^3/uL (0.0-0.8); NEUTROPHILS # 3.6 10^3/uL (1.5-8.5); NEUTROPHILS % 48.3 % (36.0-66.0); PLATELET COUNT, AUTOMATED 175 10^3/uL (150-450); RED BLOOD COUNT 4.72 10^6/uL (4.30-6.10); WHITE BLOOD COUNT 7.4 10^3/uL (4.0-10.0)
[2020-10-15 15:37] LABS: ALBUMIN 4.2 GM/DL (3.2-5.2); BILIRUBIN,TOTAL 0.9 MG/DL (0.2-1.0); C REACTIVE PROTEIN QUANTITATIV 0.3 MG/DL (0.00-0.30); CALCIUM LEVEL 9.3 MG/DL (8.5-10.1); CREATININE FOR GFR 1.65 MG/DL (0.70-1.30); POTASSIUM SERUM 4.6 MEQ/L (3.5-5.1); TOTAL PROTEIN 7.7 GM/DL (6.4-8.2); URIC ACID 6.9 MG/DL (3.5-7.2)
[2020-10-15 16:18] LABS: ERYTHROCYTE SEDIMENTATION RATE 13 mm/hr (0-20)
== END ==
LOC: M PLALAB 13:30
PROVIDERS: ATTEND Internal Medicine Rheumatology
DX: M1A.39X0 Chronic gout due to renal impairment, multiple sites, without tophus (tophi) (principal)

== ENCOUNTER → 2020-11-05 | Outpatient (REF) | payer MEDICARE, OTHER | LOC: M SFHCPLAZ 14:51 | PROVIDERS: ATTEND Nurse Practitioner Family | DX: L97.811 Non-pressure chronic ulcer of other part of right lower leg limited to breakdown of skin (principal) | CPT/HCPCS: 87070; 87077; 87186; G0463 ==

== ENCOUNTER → 2021-01-20 | Outpatient (CLI) | payer MEDICARE, OTHER ==
[2021-01-20 15:55] LABS: ALBUMIN 3.8 GM/DL (3.2-5.2); BILIRUBIN,TOTAL 0.6 MG/DL (0.2-1.0); CALCIUM LEVEL 9.1 MG/DL (8.5-10.1); CHOLESTEROL RISK RATIO 4.39 (<5); CREATININE FOR GFR 1.51 MG/DL (0.70-1.30); GLOMERULAR FILTRATION RATE 50.8 (>56); POTASSIUM SERUM 4.2 MEQ/L (3.5-5.1); TOTAL PROTEIN 7.6 GM/DL (6.4-8.2); URIC ACID 5.8 MG/DL (3.5-7.2)
[2021-01-20 16:05] LABS: HEMOGLOBIN A1c 5.2 %; TOTAL 25(OH) VITAMIN D 12.1 NG/ML (30.0-100.0)
== END ==
LOC: M PLALAB 13:35
PROVIDERS: ATTEND Nurse Practitioner Family
DX: I10 Essential (primary) hypertension (principal); E78.2 Mixed hyperlipidemia; R73.03 Prediabetes; Z87.39 Personal history of other diseases of the musculoskeletal system and connective tissue; E55.9 Vitamin D deficiency, unspecified; Z79.899 Other long term (current) drug therapy

== ENCOUNTER 2021-06-01 10:33 | Emergency (ER) | payer MEDICARE, OTHER ==
[~2021-06-01] VITALS: Ht 190.5 cm; Wt 166.0 kg
[~2021-06-01 10:33] MED LIST changes: -CYMB60CA3 PO; +CYMB60CA4 PO
[2021-06-01] MEDS ORDERED: NS 1,000 ML IV ONE (12:10)
[2021-06-01] MEDS ORDERED: PANTOPRAZOLE 40MG VIAL (C9113 PER 1) IV ONE (12:10)
[2021-06-01] MEDS ORDERED: ONDANSETRON 4MG/2ML VIAL IV ONE (12:10)
[2021-06-01] MEDS ORDERED: MORPHINE 4 MG/ML 1ML VIAL/SYRINGE (J2270) IV ONE (12:10)
[2021-06-01 13:21] LABS: BASO % 0.5 % (0.0-1.0); EOS % 0.3 % (0.0-3.0); HEMATOCRIT 42.5 % (42.0-52.0); HEMOGLOBIN 14.2 g/dl (13.5-17.5); LYMPH # 1.6 10^3/uL (1.5-5.0); LYMPH % 18.6 % (24.0-44.0); MEAN CORPUSCULAR HEMOGLOBIN 31.5 pg (27.0-33.0); MEAN CORPUSCULAR HGB CONC 33.4 g/dl (32.0-36.5); MEAN CORPUSCULAR VOLUME 94.2 fl (80.0-96.0); MONO # 0.5 10^3/uL (0.0-0.8); MONO % 5.7 % (2.0-8.0); NEUTROPHILS # 6.5 10^3/uL (1.5-8.5); NEUTROPHILS % 74.6 % (36.0-66.0); PLATELET COUNT, AUTOMATED 196 10^3/uL (150-450); RED BLOOD COUNT 4.51 10^6/uL (4.30-6.10); WHITE BLOOD COUNT 8.7 10^3/uL (4.0-10.0)
[2021-06-01] MEDS ORDERED: ISOVUE-370 76% 100ML VIAL As Ordered ONE (13:45)
[2021-06-01 13:56] LABS: CK-MB VALUE MASS 2.2 NG/ML (<3.6); MB/CK RELATIVE INDEX 1.9 (< OR =4)
[2021-06-01 14:06] LABS: ALBUMIN 3.9 GM/DL (3.2-5.2); ALT/SGPT 28 U/L (12-78); BILIRUBIN,DIRECT < 0.1 MG/DL (0.0-0.2); BILIRUBIN,TOTAL 0.6 MG/DL (0.2-1.0); LIPASE 62 U/L (73-393); NT-PRO BNP 141 PG/ML (<125)
[2021-06-01 15:27] LABS: CK-MB VALUE MASS 2.5 NG/ML (<3.6); MB/CK RELATIVE INDEX 2.98 (< OR =4)
[2021-06-01] MEDS ORDERED: OMEP40CA4 PO (16:09)
[2021-06-01] MEDS ORDERED: ONDA4TAB6 PO (16:09)
[2021-06-01 16:45] VITALS: BP 200/120
== END 2021-06-01 16:53 | disposition home or self-care (01) ==
LOC: M ED 10:33
DX: K80.50 Calculus of bile duct without cholangitis or cholecystitis without obstruction (principal); K21.9 Gastro-esophageal reflux disease without esophagitis; N20.0 Calculus of kidney; N28.1 Cyst of kidney, acquired; M51.36 Other intervertebral disc degeneration, lumbar region; I12.9 Hypertensive chronic kidney disease with stage 1 through stage 4 chronic kidney disease, or unspecified chronic kidney disease; N18.9 Chronic kidney disease, unspecified; E78.5 Hyperlipidemia, unspecified; R51.9 Headache, unspecified; E66.01 Morbid (severe) obesity due to excess calories; F32.A Depression, unspecified; Z79.82 Long term (current) use of aspirin; Z79.899 Other long term (current) drug therapy
CPT/HCPCS: 74177; 80076; 81001; 82550; 82553; 83605; 83690; 83880; 84484; 85025; 93005; 96361; 96374; 96375; 99284; C9113; J2270; J2405; Q9967

== ENCOUNTER → 2022-05-17 | Outpatient (CLI) | payer MEDICARE, OTHER ==
[~2022-05-17] MED LIST changes: +OMEP40CA4 PO; +ONDA4TAB6 PO
[2022-05-17 15:31] LABS: HEMATOCRIT 42.8 % (42.0-52.0); HEMOGLOBIN 13.7 g/dl (13.5-17.5); MEAN CORPUSCULAR HEMOGLOBIN 30.9 pg (27.0-33.0); MEAN CORPUSCULAR VOLUME 96.6 fl (80.0-96.0); PLATELET COUNT, AUTOMATED 193 10^3/uL (150-450); RED BLOOD COUNT 4.43 10^6/uL (4.30-6.10); WHITE BLOOD COUNT 8.4 10^3/uL (4.0-10.0)
[2022-05-17 15:49] LABS: HEMOGLOBIN A1c 5.2 % (4.0-6.0)
[2022-05-17 15:51] LABS: C REACTIVE PROTEIN QUANTITATIV 0.6 MG/DL (<1.0)
[2022-05-17 15:52] LABS: ALBUMIN 3.6 G/DL (3.2-5.2); BILIRUBIN,TOTAL 0.3 MG/DL (0.3-1.2); CALCIUM LEVEL 8.9 MG/DL (8.5-10.1); CHOLESTEROL RISK RATIO 5.77 (<5); CREATININE FOR GFR 1.41 MG/DL (0.70-1.30); GLOMERULAR FILTRATION RATE 54.8 (>56); LDL CHOLESTEROL 102.2 MG/DL (<100); POTASSIUM SERUM 4.2 MMOL/L (3.5-5.1)
[2022-05-17 15:53] LABS: FREE T4 0.92 NG/DL (0.89-1.76); THYROID STIMULATING HORMONE 4.322 uIU/ML (0.55-4.78); TOTAL 25(OH) VITAMIN D 9.9 NG/ML (20.0-100.0)
[2022-05-17 16:01] LABS: CREATININE, URINE 241.9 MG/DL
[2022-05-17 16:14] LABS: MAU/CREAT RATIO 298.8 MCG/MG (0.0-30.0)
== END ==
LOC: M PLALAB 13:33
PROVIDERS: ATTEND Internal Medicine Hematology
DX: E66.01 Morbid (severe) obesity due to excess calories (principal); E07.9 Disorder of thyroid, unspecified

== ENCOUNTER → 2022-08-22 | Outpatient (REF) | payer MEDICARE, OTHER | LOC: M SFHCPLAZ 17:52 | PROVIDERS: ATTEND Internal Medicine Hematology | DX: L03.115 Cellulitis of right lower limb (principal) ==

== ENCOUNTER → 2022-11-23 | Outpatient (CLI) | payer MEDICARE, OTHER ==
[2022-11-23 18:33] LABS: HEMATOCRIT 39.6 % (42.0-52.0); HEMOGLOBIN 12.8 g/dl (13.5-17.5); MEAN CORPUSCULAR HEMOGLOBIN 31.4 pg (27.0-33.0); MEAN CORPUSCULAR HGB CONC 32.3 g/dl (32.0-36.5); MEAN CORPUSCULAR VOLUME 97.3 fl (80.0-96.0); PLATELET COUNT, AUTOMATED 232 10^3/uL (150-450); RED BLOOD COUNT 4.07 10^6/uL (4.30-6.10)
[2022-11-23 18:37] LABS: HEMOGLOBIN A1c 5.5 % (4.0-6.0)
[2022-11-23 18:46] LABS: MAU/CREAT RATIO 61.3 MCG/MG (0.0-30.0)
[2022-11-23 19:01] LABS: ALBUMIN 3.5 G/DL (3.2-5.2); BILIRUBIN,TOTAL 0.5 MG/DL (0.3-1.2); CALCIUM LEVEL 9.3 MG/DL (8.5-10.1); CHOLESTEROL RISK RATIO 7.39 (<5); CREATININE FOR GFR 1.79 MG/DL (0.70-1.30); GLOMERULAR FILTRATION RATE 41.6 (>56); HDL CHOLESTEROL 31.1 MG/DL (>40); LDL CHOLESTEROL 126.9 MG/DL (<100); NON-HDL-C 198.9 MG/DL; POTASSIUM SERUM 4.3 MMOL/L (3.5-5.1); TOTAL PROTEIN 6.8 G/DL (5.7-8.2)
[2022-11-23 19:02] LABS: THYROID STIMULATING HORMONE 7.177 uIU/ML (0.55-4.78)
[2022-11-23 19:03] LABS: FREE T4 0.88 NG/DL (0.89-1.76)
[2022-11-25 01:56] LABS: C REACTIVE PROTEIN QUANTITATIV 0.7 MG/DL (<1.0)
== END ==
LOC: M PLALAB 14:21
PROVIDERS: ATTEND Internal Medicine Hematology
DX: I10 Essential (primary) hypertension (principal); Z12.9 Encounter for screening for malignant neoplasm, site unspecified; Z79.899 Other long term (current) drug therapy
CPT/HCPCS: 36415; 80053; 80061; 82043; 82306; 82607; 83036; 83525; 84439; 84443; 85027; 86140; G0103

== ENCOUNTER → 2023-05-15 | Outpatient (REF) | payer MEDICARE, OTHER ==
[~2023-05-15] MED LIST changes: +ALLO300T2 PO; +AMLO1TAB25 PO; +AMOX875T2 PO; +CHLO50TA PO; +CYAN-1 PO; +DOXY100T PO; +ERGO500029 PO; +FARX1TAB3 PO; +FURO40TA2 PO; +HYDR50TA46 PO; +OMEP40CA5 PO
== END ==
LOC: M SFHCWOUN 16:31
PROVIDERS: ATTEND Physician Assistant
DX: L97.522 Non-pressure chronic ulcer of other part of left foot with fat layer exposed (principal)

== ENCOUNTER 2023-05-20 16:58 | Inpatient (IN) | payer MEDICARE, OTHER ==
[~2023-05-20] VITALS: Ht 190.5 cm; Wt 205.7 kg
[~2023-05-20 16:58] MED LIST changes: -ALLO300T2 PO; -AMLO1TAB25 PO; -AMOX875T2 PO; -CHLO50TA PO; -CYAN-1 PO; -DOXY100T PO; -ERGO500029 PO; -FARX1TAB3 PO; -FURO40TA2 PO; -HYDR50TA46 PO; -OMEP40CA5 PO
[2023-05-20] MEDS ORDERED: DOXY100T PO (17:09)
[2023-05-20 18:46] LABS: BASO # 0.1 10^3/uL (0.0-0.2); BASO % 0.6 % (0.0-1.0); EOS # 0.1 10^3/uL (0.0-0.5); EOS % 1.1 % (0.0-3.0); HEMATOCRIT 35.2 % (42.0-52.0); HEMOGLOBIN 11.5 g/dl (13.5-17.5); LYMPH # 0.9 10^3/uL (1.5-5.0); LYMPH % 11.4 % (24.0-44.0); MEAN CORPUSCULAR HEMOGLOBIN 31.9 pg (27.0-33.0); MEAN CORPUSCULAR HGB CONC 32.7 g/dl (32.0-36.5); MEAN CORPUSCULAR VOLUME 97.5 fl (80.0-96.0); MONO # 0.6 10^3/uL (0.0-0.8); MONO % 7.4 % (2.0-8.0); NEUTROPHILS # 6.4 10^3/uL (1.5-8.5); NEUTROPHILS % 79.1 % (36.0-66.0); PLATELET COUNT, AUTOMATED 243 10^3/uL (150-450); RED BLOOD COUNT 3.61 10^6/uL (4.30-6.10); WHITE BLOOD COUNT 8.1 10^3/uL (4.0-10.0)
[2023-05-20 18:59] LABS: ERYTHROCYTE SEDIMENTATION RATE > 130 mm/hr (0-20)
[2023-05-20 19:05] LABS: C REACTIVE PROTEIN QUANTITATIV 3.7 MG/DL (<1.0)
[2023-05-20 19:06] LABS: CALCIUM LEVEL 9.1 MG/DL (8.3-10.6); CREATININE FOR GFR 2.22 MG/DL (0.70-1.30); GLOMERULAR FILTRATION RATE 32.3 (>49)
[2023-05-20] MEDS ORDERED: NS 1,000 ML IV ONE (19:25)
[2023-05-20] MEDS ORDERED: VANCOMYCIN HCL 2,000 MG in IV FLUID PLACE HOLDER 1 EA IV ONE (19:25)
[2023-05-20] MEDS ORDERED: VANCOMYCIN HCL 1,000 MG, VIAL MATE ADAPTER 1 EACH in D5W 250 ML IV ONE ×6 (20:00)
[2023-05-20] MEDS ORDERED: HYDR50TA46 PO (21:47)
[2023-05-20] MEDS ORDERED: AMLO1TAB25 PO (21:47)
[2023-05-20] MEDS ORDERED: FURO40TA2 PO (21:47)
[2023-05-20] MEDS ORDERED: ALLO300T2 PO (21:47)
[2023-05-20] MEDS ORDERED: CHLO50TA PO (21:47)
[2023-05-20] MEDS ORDERED: ERGO500029 PO (21:47)
[2023-05-20] MEDS ORDERED: CYAN-1 PO (21:47)
[2023-05-20] MEDS ORDERED: OMEP40CA5 PO (21:47)
[2023-05-20] MEDS ORDERED: HOME MED LIST COMPLETE! XX SCH (21:50)
[2023-05-20] MEDS ORDERED: MOM 30ML SUSPENSION UDC PO PRN (22:30)
[2023-05-20] MEDS ORDERED: ACETAMINOPHEN TAB 650MG DOSE (2X325MG) PO PRN (22:30)
[2023-05-20 22:59] LABS: PTH INTACT 150.7 PG/ML (18.5-88.0)
[2023-05-21 00:33] VITALS: BP 139/79; TEMP 97.7; O2SAT 94
[2023-05-21] MEDS: **hydrALAZINE** 50 MG TAB PO SCH ×4 (01:03→20:12)
[2023-05-21] MEDS: CEFEPIME HCL 1 GM in D5W MINI-BAG PLUS 50 ML IV SCH ×3 (01:03→23:11)
[2023-05-21] MEDS: tiZANidine 4 MG TAB PO SCH ×4 (01:03→20:11)
[2023-05-21] MEDS: HEPARIN SOD (PORCINE) 5000UNITS/ML 1ML VIAL/SYRINGE SC SCH ×3 (06:00→20:10)
[2023-05-21 06:04] LABS: HEMATOCRIT 31.8 % (42.0-52.0); HEMOGLOBIN 10.4 g/dl (13.5-17.5); MEAN CORPUSCULAR HEMOGLOBIN 32.2 pg (27.0-33.0); MEAN CORPUSCULAR HGB CONC 32.7 g/dl (32.0-36.5); MEAN CORPUSCULAR VOLUME 98.5 fl (80.0-96.0); PLATELET COUNT, AUTOMATED 211 10^3/uL (150-450); RED BLOOD COUNT 3.23 10^6/uL (4.30-6.10); WHITE BLOOD COUNT 7.4 10^3/uL (4.0-10.0)
[2023-05-21 06:20] VITALS: BP 134/81; TEMP 97.2; O2SAT 96
[2023-05-21 06:36] LABS: ALBUMIN 2.7 G/DL (3.2-5.2); ALKALINE PHOSPHATASE 85 U/L (46-116); ALT/SGPT 14 U/L (7.0-40); AST/SGOT 16 U/L (<34); BILIRUBIN,TOTAL 0.2 MG/DL (0.3-1.2); BLOOD UREA NITROGEN 51 MG/DL (9-23); CALCIUM LEVEL 8.7 MG/DL (8.3-10.6); CARBON DIOXIDE LEVEL 24 MMOL/L (20-31); CHLORIDE LEVEL 109 MMOL/L (98-107); CREATININE FOR GFR 2.44 MG/DL (0.70-1.30); GLUCOSE, FASTING 107 MG/DL (74-106); POTASSIUM SERUM 4.8 MMOL/L (3.5-5.1); SODIUM LEVEL 140 MMOL/L (136-145); TOTAL PROTEIN 6.5 G/DL (5.7-8.2)
[2023-05-21 06:43] LABS: PROCALCITONIN 0.34 ng/ml
[2023-05-21] MEDS ORDERED: VANCOMYCIN HCL 1,000 MG, VIAL MATE ADAPTER 1 EACH in D5W 250 ML IV SCH (08:00)
[2023-05-21 08:07] LABS: VANCOMYCIN RANDOM 15.6 UG/ML
[2023-05-21 08:08] LABS: CK-MB VALUE MASS < 1.0 NG/ML (<3.6)
[2023-05-21 08:15] LABS: CPK CREATINE PHOSPHOKINASE 45 U/L (46-171); MB/CK RELATIVE INDEX 2.22 (< OR =4)
[2023-05-21] MEDS: DOCUSATE SODIUM 100MG CAPSULE PO SCH ×2 (08:59→20:11)
[2023-05-21] MEDS: GABAPENTIN 300 MG CAP PO SCH ×3 (08:59→20:11)
[2023-05-21] MEDS: ATORVASTATIN 10 MG TAB PO SCH (08:59)
[2023-05-21] MEDS: ASPIRIN 81MG CHEW TABLET PO SCH (08:59)
[2023-05-21] MEDS: VANCOMYCIN HCL 1,000 MG, VIAL MATE ADAPTER 1 EACH in D5W 250 ML IV SCH ×2 (09:00→20:10)
[2023-05-21] MEDS: traMADol 50 MG TAB PO PRN (09:00)
[2023-05-21] MEDS ORDERED: VANCOMYCIN HCL 500 MG in D5W MINI-BAG PLUS 100 ML IV SCH (09:00)
[2023-05-21] MEDS: NS 1,000 ML IV SCH ×2 (09:07→20:21)
[2023-05-21 13:00] VITALS: BP 97/65; TEMP 98.1; O2SAT 92
[2023-05-21 16:00] VITALS: BP 103/60; TEMP 98.7; O2SAT 95
[2023-05-21 20:00] VITALS: BP 114/81; TEMP 98.4; O2SAT 95
[2023-05-22] VITALS (14 sets, daily range): BP systolic 106–159; BP diastolic 61–82; TEMP 97–98.2; O2SAT 76–96
[2023-05-22] MEDS: HEPARIN SOD (PORCINE) 5000UNITS/ML 1ML VIAL/SYRINGE SC SCH ×3 (05:08→21:42)
[2023-05-22 05:18] LABS: BASO % 0.4 % (0.0-1.0); EOS # 0.2 10^3/uL (0.0-0.5); EOS % 2.6 % (0.0-3.0); HEMATOCRIT 32.3 % (42.0-52.0); HEMOGLOBIN 10.4 g/dl (13.5-17.5); LYMPH # 1.6 10^3/uL (1.5-5.0); LYMPH % 21.8 % (24.0-44.0); MEAN CORPUSCULAR HEMOGLOBIN 31.8 pg (27.0-33.0); MEAN CORPUSCULAR HGB CONC 32.2 g/dl (32.0-36.5); MEAN CORPUSCULAR VOLUME 98.8 fl (80.0-96.0); MONO # 0.6 10^3/uL (0.0-0.8); MONO % 8.5 % (2.0-8.0); NEUTROPHILS # 4.9 10^3/uL (1.5-8.5); NEUTROPHILS % 66.3 % (36.0-66.0); PLATELET COUNT, AUTOMATED 199 10^3/uL (150-450); RED BLOOD COUNT 3.27 10^6/uL (4.30-6.10); WHITE BLOOD COUNT 7.4 10^3/uL (4.0-10.0)
[2023-05-22 05:52] LABS: C REACTIVE PROTEIN QUANTITATIV 4.3 MG/DL (<1.0); VANCOMYCIN RANDOM 22.6 UG/ML
[2023-05-22 05:53] LABS: CALCIUM LEVEL 8.8 MG/DL (8.3-10.6); CREATININE FOR GFR 2.25 MG/DL (0.70-1.30); GLOMERULAR FILTRATION RATE 31.8 (>49); MAGNESIUM LEVEL 1.5 MG/DL (1.8-2.4); POTASSIUM SERUM 4.7 MMOL/L (3.5-5.1)
[2023-05-22] MEDS ORDERED: MAG SULF 1GM/100ML (MAG RUN) 1 GM in IV 1 EA IV ONE (08:00)
[2023-05-22] MEDS: tiZANidine 4 MG TAB PO SCH ×3 (08:13→21:41)
[2023-05-22] MEDS: GABAPENTIN 300 MG CAP PO SCH ×3 (08:13→21:41)
[2023-05-22] MEDS: DOCUSATE SODIUM 100MG CAPSULE PO SCH ×2 (08:13→21:41)
[2023-05-22] MEDS: **hydrALAZINE** 50 MG TAB PO SCH ×3 (08:13→21:42)
[2023-05-22] MEDS: NS 1,000 ML IV SCH (08:14)
[2023-05-22] MEDS: ASPIRIN 81MG CHEW TABLET PO SCH (08:14)
[2023-05-22] MEDS: ATORVASTATIN 10 MG TAB PO SCH (08:14)
[2023-05-22] MEDS ORDERED: propofoL 200 MG/20 ML VIAL As Ordered ONE (09:51)
[2023-05-22] MEDS ORDERED: fentaNYL 100 MCG/2 ML INJECTION As Ordered ONE (09:51)
[2023-05-22] MEDS ORDERED: LIDOCAINE 2% 100MG/5ML SDV (FOR ANES.) As Ordered ONE (09:51)
[2023-05-22] MEDS ORDERED: MIDAZOLAM INJ 2MG/2ML VIAL As Ordered ONE (09:52)
[2023-05-22 09:59] LABS: HEMOGLOBIN A1c 5.8 % (4.0-6.0)
[2023-05-22] MEDS ORDERED: FUROSEMIDE 20MG/2ML VIAL IV ONE (10:45)
[2023-05-22] MEDS: CEFEPIME HCL 1 GM in D5W MINI-BAG PLUS 50 ML IV SCH ×2 (11:00→22:31)
[2023-05-22] MEDS ORDERED: LIDOCAINE 1% MDV 20ML VIAL As Ordered ONE (11:05)
[2023-05-22] MEDS: DAPAGLIFLOZIN PROPANEDIOL 10MG TABLET (FARXIGA) PO SCH (14:18)
[2023-05-22] MEDS ORDERED: VANCOMYCIN HCL 750 MG, VIAL MATE ADAPTER 1 EACH in D5W 250 ML IV SCH (18:00)
[2023-05-22] MEDS ORDERED: VANCOMYCIN HCL 500 MG in D5W MINI-BAG PLUS 100 ML IV SCH (19:00)
[2023-05-23] VITALS (11 sets, daily range): BP systolic 100–148; BP diastolic 68–82; TEMP 97.2–97.7; O2SAT 89–98
[2023-05-23 05:32] LABS: BASO % 0.5 % (0.0-1.0); EOS # 0.2 10^3/uL (0.0-0.5); EOS % 2.9 % (0.0-3.0); HEMATOCRIT 34.2 % (42.0-52.0); HEMOGLOBIN 10.7 g/dl (13.5-17.5); LYMPH # 2.2 10^3/uL (1.5-5.0); LYMPH % 28.1 % (24.0-44.0); MEAN CORPUSCULAR HEMOGLOBIN 31.7 pg (27.0-33.0); MEAN CORPUSCULAR HGB CONC 31.3 g/dl (32.0-36.5); MEAN CORPUSCULAR VOLUME 101.2 fl (80.0-96.0); MONO # 0.7 10^3/uL (0.0-0.8); MONO % 8.4 % (2.0-8.0); NEUTROPHILS # 4.8 10^3/uL (1.5-8.5); NEUTROPHILS % 59.7 % (36.0-66.0); PLATELET COUNT, AUTOMATED 205 10^3/uL (150-450); RED BLOOD COUNT 3.38 10^6/uL (4.30-6.10)
[2023-05-23] MEDS: HEPARIN SOD (PORCINE) 5000UNITS/ML 1ML VIAL/SYRINGE SC SCH ×3 (05:50→21:12)
[2023-05-23 05:52] LABS: C REACTIVE PROTEIN QUANTITATIV 7.1 MG/DL (<1.0)
[2023-05-23 05:54] LABS: CALCIUM LEVEL 8.5 MG/DL (8.3-10.6); CREATININE FOR GFR 2.03 MG/DL (0.70-1.30); GLOMERULAR FILTRATION RATE 35.8 (>49); MAGNESIUM LEVEL 1.9 MG/DL (1.8-2.4); POTASSIUM SERUM 4.6 MMOL/L (3.5-5.1)
[2023-05-23] MEDS: ATORVASTATIN 10 MG TAB PO SCH (08:48)
[2023-05-23] MEDS: DAPAGLIFLOZIN PROPANEDIOL 10MG TABLET (FARXIGA) PO SCH (08:49)
[2023-05-23] MEDS: GABAPENTIN 300 MG CAP PO SCH ×3 (08:49→21:12)
[2023-05-23] MEDS: DOCUSATE SODIUM 100MG CAPSULE PO SCH ×2 (08:49→21:12)
[2023-05-23] MEDS: ASPIRIN 81MG CHEW TABLET PO SCH (08:49)
[2023-05-23] MEDS: tiZANidine 4 MG TAB PO SCH ×3 (08:49→21:12)
[2023-05-23] MEDS: **hydrALAZINE** 50 MG TAB PO SCH ×3 (08:50→20:53)
[2023-05-23] MEDS ORDERED: INFLUENZA QUADRIVALENT PF VACCINE 0.5ML SYRINGE IM.IMMUN ONE (10:00)
[2023-05-23] MEDS: CEFEPIME HCL 1 GM in D5W MINI-BAG PLUS 50 ML IV SCH ×2 (12:00→22:09)
[2023-05-23] MEDS ORDERED: FUROSEMIDE 20MG/2ML VIAL IV ONE (14:10)
[2023-05-24 05:30] VITALS: BP 130/80; TEMP 97.7; O2SAT 95
[2023-05-24] MEDS: HEPARIN SOD (PORCINE) 5000UNITS/ML 1ML VIAL/SYRINGE SC SCH ×3 (05:44→22:08)
[2023-05-24 07:46] LABS: BASO % 0.4 % (0.0-1.0); EOS # 0.3 10^3/uL (0.0-0.5); EOS % 3.9 % (0.0-3.0); HEMATOCRIT 33.4 % (42.0-52.0); HEMOGLOBIN 10.5 g/dl (13.5-17.5); LYMPH # 2.4 10^3/uL (1.5-5.0); LYMPH % 35.6 % (24.0-44.0); MEAN CORPUSCULAR HEMOGLOBIN 31.7 pg (27.0-33.0); MEAN CORPUSCULAR HGB CONC 31.4 g/dl (32.0-36.5); MEAN CORPUSCULAR VOLUME 100.9 fl (80.0-96.0); MONO # 0.7 10^3/uL (0.0-0.8); MONO % 9.9 % (2.0-8.0); NEUTROPHILS # 3.3 10^3/uL (1.5-8.5); NEUTROPHILS % 49.8 % (36.0-66.0); PLATELET COUNT, AUTOMATED 229 10^3/uL (150-450); RED BLOOD COUNT 3.31 10^6/uL (4.30-6.10); WHITE BLOOD COUNT 6.7 10^3/uL (4.0-10.0)
[2023-05-24 08:15] LABS: C REACTIVE PROTEIN QUANTITATIV 6.4 MG/DL (<1.0)
[2023-05-24 08:17] LABS: CREATININE FOR GFR 2.05 MG/DL (0.70-1.30); GLOMERULAR FILTRATION RATE 35.4 (>49); MAGNESIUM LEVEL 1.9 MG/DL (1.8-2.4); POTASSIUM SERUM 4.8 MMOL/L (3.5-5.1)
[2023-05-24] MEDS ORDERED: FUROSEMIDE 40MG/4ML VIAL IV SCH (09:00)
[2023-05-24] MEDS: GABAPENTIN 300 MG CAP PO SCH ×3 (09:35→22:08)
[2023-05-24] MEDS: ATORVASTATIN 10 MG TAB PO SCH (09:35)
[2023-05-24] MEDS: tiZANidine 4 MG TAB PO SCH ×3 (09:37→22:08)
[2023-05-24] MEDS ORDERED: PILL CUTTER 1 EACH XX ONE (09:37)
[2023-05-24] MEDS: ASPIRIN 81MG CHEW TABLET PO SCH (09:37)
[2023-05-24] MEDS: DAPAGLIFLOZIN PROPANEDIOL 10MG TABLET (FARXIGA) PO SCH (09:37)
[2023-05-24] MEDS: DOCUSATE SODIUM 100MG CAPSULE PO SCH ×2 (09:37→22:08)
[2023-05-24] MEDS: **hydrALAZINE** 50 MG TAB PO SCH ×3 (09:38→22:07)
[2023-05-24] MEDS: FUROSEMIDE 40 MG TAB PO SCH (11:15)
[2023-05-24] MEDS: CEFEPIME HCL 1 GM in D5W MINI-BAG PLUS 50 ML IV SCH ×2 (11:15→22:08)
[2023-05-24 13:18] VITALS: O2SAT 91
[2023-05-24 14:00] VITALS: BP 108/67; TEMP 97.7; O2SAT 98
[2023-05-24 20:00] VITALS: BP 157/80; TEMP 97.2; O2SAT 93
[2023-05-25] MEDS: HEPARIN SOD (PORCINE) 5000UNITS/ML 1ML VIAL/SYRINGE SC SCH ×2 (05:38→14:54)
[2023-05-25 05:55] LABS: BASO % 0.5 % (0.0-1.0); EOS # 0.2 10^3/uL (0.0-0.5); EOS % 3.3 % (0.0-3.0); HEMATOCRIT 30.5 % (42.0-52.0); HEMOGLOBIN 9.8 g/dl (13.5-17.5); LYMPH % 30.8 % (24.0-44.0); MEAN CORPUSCULAR HEMOGLOBIN 32.1 pg (27.0-33.0); MEAN CORPUSCULAR HGB CONC 32.1 g/dl (32.0-36.5); MONO # 0.6 10^3/uL (0.0-0.8); MONO % 9.5 % (2.0-8.0); NEUTROPHILS # 3.7 10^3/uL (1.5-8.5); NEUTROPHILS % 55.4 % (36.0-66.0); PLATELET COUNT, AUTOMATED 220 10^3/uL (150-450); RED BLOOD COUNT 3.05 10^6/uL (4.30-6.10); WHITE BLOOD COUNT 6.6 10^3/uL (4.0-10.0)
[2023-05-25 06:00] VITALS: BP 104/70; TEMP 97.9; O2SAT 92
[2023-05-25 06:19] LABS: C REACTIVE PROTEIN QUANTITATIV 4.8 MG/DL (<1.0)
[2023-05-25 06:20] LABS: CALCIUM LEVEL 9.3 MG/DL (8.3-10.6); CREATININE FOR GFR 2.01 MG/DL (0.70-1.30); GLOMERULAR FILTRATION RATE 36.3 (>49); MAGNESIUM LEVEL 1.9 MG/DL (1.8-2.4); POTASSIUM SERUM 4.8 MMOL/L (3.5-5.1)
[2023-05-25] MEDS: GABAPENTIN 300 MG CAP PO SCH (08:25)
[2023-05-25] MEDS: ATORVASTATIN 10 MG TAB PO SCH (08:25)
[2023-05-25] MEDS: tiZANidine 4 MG TAB PO SCH (08:25)
[2023-05-25] MEDS: ASPIRIN 81MG CHEW TABLET PO SCH (08:26)
[2023-05-25] MEDS: traMADol 50 MG TAB PO PRN (08:26)
[2023-05-25] MEDS: DAPAGLIFLOZIN PROPANEDIOL 10MG TABLET (FARXIGA) PO SCH (08:27)
[2023-05-25] MEDS: DOCUSATE SODIUM 100MG CAPSULE PO SCH (08:27)
[2023-05-25] MEDS: FUROSEMIDE 40 MG TAB PO SCH (08:27)
[2023-05-25 08:28] VITALS: BP 104/70
[2023-05-25] MEDS: **hydrALAZINE** 50 MG TAB PO SCH (08:28)
[2023-05-25] MEDS: CEFEPIME HCL 1 GM in D5W MINI-BAG PLUS 50 ML IV SCH (11:45)
[2023-05-25 14:00] VITALS: BP 99/65; TEMP 97.7; O2SAT 91
[2023-05-25] MEDS ORDERED: FARX1TAB3 PO (14:47)
[2023-05-25] MEDS ORDERED: AMOX875T2 PO (14:47)
== END 2023-05-25 16:10 | disposition home or self-care (01) | DRG 504 ==
LOC: M ED 16:58 → M ED INP 22:27 → ENRESERV 22:45 → M MS5PR 05-21 00:37 → M ICU 05-21 12:20 → M MSPAV 05-22 14:35
PROVIDERS: ADMIT Internal Medicine; ATTEND Internal Medicine
PROC: B246ZZZ Ultrasonography of Right and Left Heart (ICD-10-PCS; 2023-05-21)
PROC: 0Y6Y0Z0 Detachment at Left 5th Toe, Complete, Open Approach (ICD-10-PCS; principal; 2023-05-22 11:30)
DX: M86.172 Other acute osteomyelitis, left ankle and foot (principal); I87.313 Chronic venous hypertension (idiopathic) with ulcer of bilateral lower extremity; N17.9 Acute kidney failure, unspecified; Z68.43 Body mass index [BMI] 50.0-59.9, adult; I50.32 Chronic diastolic (congestive) heart failure; I13.0 Hypertensive heart and chronic kidney disease with heart failure and stage 1 through stage 4 chronic kidney disease, or unspecified chronic kidney disease; N18.2 Chronic kidney disease, stage 2 (mild); M10.9 Gout, unspecified; F32.A Depression, unspecified; F41.9 Anxiety disorder, unspecified; E78.5 Hyperlipidemia, unspecified; E66.01 Morbid (severe) obesity due to excess calories; R07.89 Other chest pain; M48.061 Spinal stenosis, lumbar region without neurogenic claudication; L97.529 Non-pressure chronic ulcer of other part of left foot with unspecified severity; M72.2 Plantar fascial fibromatosis; L03.032 Cellulitis of left toe; M54.50 Low back pain, unspecified; N18.30 Chronic kidney disease, stage 3 unspecified; G89.29 Other chronic pain; G47.33 Obstructive sleep apnea (adult) (pediatric); E83.42 Hypomagnesemia; M51.16 Intervertebral disc disorders with radiculopathy, lumbar region; B95.61 Methicillin susceptible Staphylococcus aureus infection as the cause of diseases classified elsewhere; I87.2 Venous insufficiency (chronic) (peripheral); B95.4 Other streptococcus as the cause of diseases classified elsewhere; Z87.891 Personal history of nicotine dependence; Z79.82 Long term (current) use of aspirin; Z86.14 Personal history of Methicillin resistant Staphylococcus aureus infection; Z79.899 Other long term (current) drug therapy; Z89.421 Acquired absence of other right toe(s)

== ENCOUNTER → 2023-05-31 | Outpatient (CLI) | payer MEDICARE, OTHER ==
[~2023-05-31] MED LIST changes: +ALLO300T2 PO; +AMLO1TAB25 PO; +AMOX875T2 PO; +CHLO50TA PO; +CYAN-1 PO; +DOXY100T PO; +ERGO500029 PO; +FARX1TAB3 PO; +FURO40TA2 PO; +HYDR50TA46 PO; +OMEP40CA5 PO
[2023-05-31 15:59] LABS: BASO % 0.5 % (0.0-1.0); EOS # 0.2 10^3/uL (0.0-0.5); EOS % 2.6 % (0.0-3.0); HEMATOCRIT 34.3 % (42.0-52.0); HEMOGLOBIN 10.8 g/dl (13.5-17.5); LYMPH # 1.8 10^3/uL (1.5-5.0); LYMPH % 20.7 % (24.0-44.0); MEAN CORPUSCULAR HEMOGLOBIN 31.5 pg (27.0-33.0); MEAN CORPUSCULAR HGB CONC 31.5 g/dl (32.0-36.5); MONO # 0.6 10^3/uL (0.0-0.8); MONO % 6.8 % (2.0-8.0); NEUTROPHILS % 68.9 % (36.0-66.0); PLATELET COUNT, AUTOMATED 174 10^3/uL (150-450); RED BLOOD COUNT 3.43 10^6/uL (4.30-6.10); WHITE BLOOD COUNT 8.8 10^3/uL (4.0-10.0)
[2023-05-31 17:14] LABS: HEMOGLOBIN A1c 5.9 % (4.0-6.0)
[2023-05-31 20:53] LABS: ALBUMIN 3.3 G/DL (3.2-5.2); BILIRUBIN,TOTAL 0.3 MG/DL (0.3-1.2); CALCIUM LEVEL 9.1 MG/DL (8.3-10.6); CHOLESTEROL RISK RATIO 4.18 (<5); CREATININE FOR GFR 1.87 MG/DL (0.70-1.30); GLOMERULAR FILTRATION RATE 39.4 (>49); HDL CHOLESTEROL 35.1 MG/DL (>40); LDL CHOLESTEROL 72.9 MG/DL (<100); MAGNESIUM LEVEL 1.7 MG/DL (1.8-2.4); NON-HDL-C 111.9 MG/DL; POTASSIUM SERUM 4.1 MMOL/L (3.5-5.1); TOTAL PROTEIN 7.2 G/DL (5.7-8.2)
== END ==
LOC: M PLALAB 14:01
PROVIDERS: ATTEND Internal Medicine Cardiovascular Disease
DX: E78.2 Mixed hyperlipidemia (principal); R73.09 Other abnormal glucose; I48.0 Paroxysmal atrial fibrillation; I50.9 Heart failure, unspecified; R06.02 Shortness of breath

== ENCOUNTER → 2023-06-08 | Outpatient (CLI) | payer MEDICARE, OTHER ==
[2023-06-08 13:02] LABS: CREATININE FOR GFR 1.88 MG/DL (0.70-1.30); GLOMERULAR FILTRATION RATE 39.2 (>49)
== END ==
LOC: M PLALAB 10:15
PROVIDERS: ATTEND Internal Medicine Cardiovascular Disease
DX: I50.31 Acute diastolic (congestive) heart failure (principal)

== ENCOUNTER 2023-06-16 12:01 | Emergency (ER) | payer MEDICARE, OTHER ==
[~2023-06-16] VITALS: Ht 190.5 cm; Wt 198.4 kg
[2023-06-16] MEDS: NS 1,000 ML IV ONE ×3 (12:42→23:11)
[2023-06-16 12:52] LABS: BASO % 0.1 % (0.0-1.0); HEMATOCRIT 33.5 % (42.0-52.0); HEMOGLOBIN 11.2 g/dl (13.5-17.5); LYMPH # 0.4 10^3/uL (1.5-5.0); LYMPH % 3.2 % (24.0-44.0); MEAN CORPUSCULAR HEMOGLOBIN 31.9 pg (27.0-33.0); MEAN CORPUSCULAR HGB CONC 33.4 g/dl (32.0-36.5); MEAN CORPUSCULAR VOLUME 95.4 fl (80.0-96.0); MONO # 0.8 10^3/uL (0.0-0.8); MONO % 6.5 % (2.0-8.0); NEUTROPHILS # 10.8 10^3/uL (1.5-8.5); NEUTROPHILS % 89.3 % (36.0-66.0); PLATELET COUNT, AUTOMATED 121 10^3/uL (150-450); RED BLOOD COUNT 3.51 10^6/uL (4.30-6.10); WHITE BLOOD COUNT 12.1 10^3/uL (4.0-10.0)
[2023-06-16 12:54] LABS: ABG BASE EXCESS -6.2 (-2.0-2.0); ABG HCO3 17.4 MMOL/L (22.0-26.0); ABG O2 SATURATION 92.6 % (95.0-99.0); ABG PARTIAL PRESSURE CO2 28.9 mmHg (35.0-45.0); ABG PARTIAL PRESSURE O2 63.4 mmHg (75.0-100.0); ABG STANDARD HCO3 19.3 MMOL/L. (22.0-26.0); ABG TOTAL CO2 18.3 MMOL/L (23.0-31.0); ABG pH (ARTERIAL) 7.398 UNITS (7.350-7.450)
[2023-06-16] MEDS: LIDOCAINE 2% 5ML JELLY UROJET TOP ONE (13:05)
[2023-06-16 13:26] LABS: ALBUMIN 2.7 G/DL (3.2-5.2); BILIRUBIN,DIRECT 0.7 MG/DL (<0.4); BILIRUBIN,TOTAL 1.2 MG/DL (0.3-1.2); CALCIUM LEVEL 7.6 MG/DL (8.3-10.6); CK-MB VALUE MASS 43.6 NG/ML (<3.6); CREATININE FOR GFR 7.03 MG/DL (0.70-1.30); GLOMERULAR FILTRATION RATE 8.5 (>49); POTASSIUM SERUM 4.5 MMOL/L (3.5-5.1); TOTAL PROTEIN 6.6 G/DL (5.7-8.2)
[2023-06-16 13:28] LABS: THYROID STIMULATING HORMONE 3.72 uIU/ML (0.55-4.78); THYROXINE (T4) 4.5 UG/DL (4.5-10.9)
[2023-06-16 13:37] LABS: PROCALCITONIN 3.9 ng/ml
[2023-06-16 13:39] LABS: MB/CK RELATIVE INDEX 0.79 (< OR =4)
[2023-06-16 14:08] LABS: CK-MB VALUE MASS 42.3 NG/ML (<3.6)
[2023-06-16] MEDS: NS IV STA (14:11)
[2023-06-16] MEDS: cefTRIAXone SOD 2 GM in D5W MINI-BAG PLUS 50 ML IV ONE (14:11)
[2023-06-16 14:31] LABS: MB/CK RELATIVE INDEX 0.8 (< OR =4)
[2023-06-16] MEDS ORDERED: VANCOMYCIN HCL 2,000 MG in D5W 500 ML IV ONE (15:15)
[2023-06-16 15:52] LABS: C REACTIVE PROTEIN QUANTITATIV 38.2 MG/DL (<1.0)
[2023-06-16] MEDS: VANCOMYCIN HCL 1,000 MG, VIAL MATE ADAPTER 1 EACH in D5W 250 ML IV ONE ×2 (15:52)
[2023-06-16 16:24] VITALS: O2SAT 96
[2023-06-16] MEDS ORDERED: FARX1TAB5 PO (17:05)
[2023-06-16] MEDS ORDERED: AMOX875T2 PO (17:05)
[2023-06-16] MEDS ORDERED: MED HIST COMMENT (17:12)
[2023-06-16] MEDS ORDERED: HOME MED LIST COMPLETE! XX SCH (17:15)
[2023-06-16 18:08] LABS: CALCIUM LEVEL 7.3 MG/DL (8.3-10.6); CREATININE FOR GFR 7.66 MG/DL (0.70-1.30); GLOMERULAR FILTRATION RATE 7.7 (>49); POTASSIUM SERUM 4.5 MMOL/L (3.5-5.1)
[2023-06-16 19:13] LABS: ABG BASE EXCESS -9.1 (-2.0-2.0); ABG PARTIAL PRESSURE CO2 31.9 mmHg (35.0-45.0); ABG PARTIAL PRESSURE O2 79.1 mmHg (75.0-100.0); ABG STANDARD HCO3 17.1 MMOL/L. (22.0-26.0); ABG TOTAL CO2 16.9 MMOL/L (23.0-31.0); ABG pH (ARTERIAL) 7.317 UNITS (7.350-7.450)
[2023-06-16] MEDS: fentaNYL 100 MCG/2 ML INJECTION IV ONE ×3 (19:14→23:11)
[2023-06-16] MEDS: NS 1,000 ML IV SCH (20:56)
[2023-06-16] MEDS ORDERED: NOREPINEPHRINE 4MG IN D5 250ML 4 MG in IV 1 EA IV SCH (22:35)
[2023-06-16 22:56] LABS: CALCIUM LEVEL 6.9 MG/DL (8.3-10.6); CREATININE FOR GFR 7.97 MG/DL (0.70-1.30); GLOMERULAR FILTRATION RATE 7.4 (>49); POTASSIUM SERUM 4.5 MMOL/L (3.5-5.1)
[2023-06-17] MEDS: methylPREDNISolone 125MG 2ML VIAL IV SCH (00:18)
[2023-06-17] MEDS: FUROSEMIDE 100MG/10ML VIAL IV ONE (00:20)
[2023-06-17] MEDS: NOREPINEPHRINE 4MG IN D5 250ML 4 MG in IV 1 EA IV SCH (01:06)
[2023-06-17] MEDS ORDERED: VANCOMYCIN HCL 2,000 MG, VIAL MATE ADAPTER 1 EACH in D5W 250 ML IV SCH (01:25)
[2023-06-17] MEDS ORDERED: VANCOMYCIN INTERMITTENT/PULSE DOSING BY CLINICAL PHARMACIST PER DOSING PROTOCOL XX SCH (01:50)
[2023-06-17 02:01] LABS: ABG BASE EXCESS -9.8 (-2.0-2.0); ABG HCO3 15.7 MMOL/L (22.0-26.0); ABG O2 SATURATION 94.1 % (95.0-99.0); ABG PARTIAL PRESSURE CO2 32.9 mmHg (35.0-45.0); ABG PARTIAL PRESSURE O2 73.4 mmHg (75.0-100.0); ABG STANDARD HCO3 16.6 MMOL/L. (22.0-26.0); ABG TOTAL CO2 16.7 MMOL/L (23.0-31.0); ABG pH (ARTERIAL) 7.296 UNITS (7.350-7.450)
[2023-06-17] MEDS: NS 1,000 ML IV SCH (02:26)
[2023-06-17] MEDS: PIPERACILLIN/TAZOBACTAM SOD 2.25 GM in D5W MINI-BAG PLUS 50 ML IV SCH (02:30)
[2023-06-17] MEDS: ACETAMINOPHEN *IV* 500 MG in IV 1 EA IV ONE (03:40)
[2023-06-17 04:15] LABS: CALCIUM LEVEL 7.1 MG/DL (8.3-10.6); CREATININE FOR GFR 7.76 MG/DL (0.70-1.30); GLOMERULAR FILTRATION RATE 7.6 (>49); POTASSIUM SERUM 5.1 MMOL/L (3.5-5.1)
[2023-06-17] MEDS: PERCOCET 5MG/325MG TAB PO ONE (04:55)
[2023-06-17] MEDS: SODIUM BICARBONATE 8.4% INJ 50ML SYRINGE IV STA (04:55)
[2023-06-17 07:08] LABS: VANCOMYCIN RANDOM 3.4 UG/ML
[2023-06-17] MEDS: HEPARIN SOD (PORCINE) 5000UNITS/ML 1ML VIAL/SYRINGE SC SCH (07:36)
[2023-06-17 09:04] LABS: VANCOMYCIN RANDOM 4.2 UG/ML
[2023-06-17] MEDS: VANCOMYCIN HCL 1,000 MG, VIAL MATE ADAPTER 1 EACH in D5W 250 ML IV SCH (10:24)
[2023-06-17] MEDS ORDERED: oxyCODONE 5MG TAB PO PRN ×2 (11:10)
[2023-06-17] MEDS ORDERED: fentaNYL 100 MCG/2 ML INJECTION IV PRN (11:10)
[2023-06-17] MEDS: fentaNYL 100 MCG/2 ML INJECTION IV ONE (11:55)
[2023-06-17] MEDS: ACETAMINOPHEN *IV* 1,000 MG in IV 1 EA IV ONE (12:09)
[2023-06-17] MEDS: PIPERACILLIN/TAZOBACTAM SOD 4.5 GM in D5W MINI-BAG PLUS 50 ML IV SCH (14:15)
[2023-06-17] MEDS: GABAPENTIN 300 MG CAP PO ONE (15:48)
[2023-06-17] MEDS: allopurinoL 300 MG TAB PO SCH (15:49)
[2023-06-17] MEDS: traMADol 50 MG TAB PO ONE (15:49)
[2023-06-17 16:10] VITALS: BP 117/59; TEMP 97.5; O2SAT 94
== END 2023-06-17 16:47 | disposition short-term general hospital (02) ==
LOC: EDBD 12:01 → M ED 12:01
DX: A41.9 Sepsis, unspecified organism (principal); N17.9 Acute kidney failure, unspecified; R00.0 Tachycardia, unspecified; I45.10 Unspecified right bundle-branch block; E11.9 Type 2 diabetes mellitus without complications; K21.9 Gastro-esophageal reflux disease without esophagitis; E78.5 Hyperlipidemia, unspecified; F41.9 Anxiety disorder, unspecified; F32.9 Major depressive disorder, single episode, unspecified; I12.9 Hypertensive chronic kidney disease with stage 1 through stage 4 chronic kidney disease, or unspecified chronic kidney disease; Z79.899 Other long term (current) drug therapy; Z79.2 Long term (current) use of antibiotics
CPT/HCPCS: 36415; 36600; 51701; 71045; 71250; 73630; 74176; 76705; 80048; 80076; 80202; 81001; 82550; 82553; 82803; 83605; 83880; 84145; 84436; 84443; 84484; 85025; 85652; 86140; 87040; 87077; 87088; 87186; 87486; 87581; 87633; 87798; 93005; 93041; 94660; 94760; 96361; 96365; 96366; 96375; 96376; 99291; 99292; J0131; J0696; J1940; J2543; J2930; J3010; J3370